=== PATIENT | male | born 1940 | race Caucasian/White ===

== ENCOUNTER 2016-10-25 15:34 | Observation (INO) | payer MEDICARE, OTHER ==
[~2016-10-25] VITALS: Ht 170.2 cm; Wt 97.7 kg
[~2016-10-25 15:34] MED LIST: 1-ME1LIQ PO; FOLI1TAB PO; METH2.5 PO; PRED2.5T4 PO
[2016-10-25 15:36] VITALS: BP 136/80; PULSE 104; RESP 20; TEMP 98.5; O2SAT 95
--- NOTE | 2016-10-25 15:52 | PD ---
Physical Exam Date Seen by Provider: Oct 25, 2016 Time Seen by Provider: 15:50 Narrative 76 year old white male presents to emergency department complaints of chest pain. He states that the pain has been present now for a week. He states that it was initially intermittent but now has become more persistent and steady. History of colorectal cancer. Currently on oral therapy. Patient denies any shortness of breath, wheezing, nausea, vomiting or diaphoresis. Patient of Dr. tay, Dr. Linda Almonte Vital signs reviewed. Awaiting bed placement. Data Data Last Documented VS Vital Signs Date Time Temp Pulse Resp B/P (MAP) Pulse Ox O2 Delivery O2 Flow Rate FiO2 10/25/16 15:36 98.5 104 20 136/80 (98) 95 Room Air Orders Orders Electrocardiogram (10/25/16 15:42) [facility] Medical Record Reviewed: No Supervised Visit with BROOKE: Teodoro Poe Oct 25, 2016 15:52
[2016-10-25] MEDS ORDERED: ASPIRIN 81 MG CHEW TAB PO ONE (16:15)
[2016-10-25] MEDS ORDERED: SODIUM CHLORIDE 0.9% FLUSH 10 ML FLUSH IVF PRN (16:15)
[2016-10-25 16:36] VITALS: BP 128/65; PULSE 75; RESP 17; O2SAT 97
--- NOTE | 2016-10-25 16:47 | RADRPT ---
EXAM DATE/TIME: 10/25/2016 16:26 [facility] COMPARISON: CHEST SINGLE AP, March 18, 2015, 18:28. INDICATIONS : Chest pain. MEDICAL HISTORY : Chronic obstructive pulmonary disease. Cardiovascular disease. SURGICAL HISTORY : CABG. ENCOUNTER: Initial ACUITY: 4 - 6 days PAIN SCORE: 1/10 LOCATION: Bilateral chest FINDINGS: Portable AP view of the chest demonstrates a normal-sized cardiac silhouette in this patient post med mina sternotomy. Clips overlie the mediastinum. No pleural effusion, airspace consolidation, or pneumo thorax is identified. CONCLUSION: No acute cardiopulmonary abnormality is identified. Lemuel Paz MD on October 25, 2016 at 16:45 Board Certified Radiologist. This report was verified electronically.
[2016-10-25 16:52] LABS: AUTOMATED NEUTROPHIL # 4.2 TH/MM3 (1.8-7.7); BASOPHIL % 0.2 % (0.0-2.0); EOSINOPHIL # 0.1 TH/MM3 (0-0.4); EOSINOPHIL % 2.7 % (0.0-4.0); HEMATOCRIT 39.3 % (39.0-51.0); HEMO FLAGS DIFF FINAL; LYMPH % 13.2 % (9.0-44.0); LYMPHOCYTE # 0.7 TH/MM3 (1.0-4.8); MEAN CELL VOLUME 91.9 FL (80.0-100.0); MEAN CORPUSCULAR HEMOGLOBIN 30.4 PG (27.0-34.0); MONO % 9.5 % (0.0-8.0); NEUT % 74.4 % (16.0-70.0); PLATELET COUNT 136 TH/MM3 (150-450); RED BLOOD COUNT 4.27 MIL/MM3 (4.50-5.90); RED CELL DISTRIBUTION WIDTH 17.3 % (11.6-17.2); WHITE BLOOD COUNT 5.6 TH/MM3 (4.0-11.0)
[2016-10-25 17:10] LABS: APTT (PATIENT) 24.5 SEC (24.3-30.1); INTERNATIONAL NORMALIZED RATIO 1.1 RATIO; PROTHROMBIN TIME - PATIENT 12.7 SEC (9.8-11.6)
[2016-10-25 17:11] LABS: ANION GAP 8 MEQ/L (5-15); BICARBONATE 24.5 MEQ/L (21.0-32.0); BLOOD UREA NITROGEN 23 MG/DL (7-18); CHLORIDE 108 MEQ/L (98-107); GLOMERULAR FILTRATION RATE 74 ML/MIN (>89); MAGNESIUM 1.7 MG/DL (1.5-2.5); POTASSIUM 3.7 MEQ/L (3.5-5.1); SODIUM (NA) 140 MEQ/L (136-145)
[2016-10-25 17:16] LABS: CREATINE KINASE 133 U/L (39-308)
[2016-10-25 17:28] LABS: CKMB 1.3 NG/ML (0.5-3.6)
[2016-10-25] MEDS ORDERED: ACETAMINOPHEN 500 MG CPLT PO PRN (18:00)
[2016-10-25] MEDS ORDERED: NITROGLYCERIN 0.4 MG SL 25 TABS/BTL SL PRN (18:00)
[2016-10-25] MEDS ORDERED: SODIUM CHLORIDE 0.9% FLUSH 10 ML FLUSH IV FLUSH PRN (18:00)
[2016-10-25] MEDS ORDERED: ONDANSETRON HCL 4 MG/2 ML VIAL IV PUSH PRN (18:00)
--- NOTE | 2016-10-25 18:23 | PD ---
HPI Chief Complaint: Chest Pain Time Seen by Provider: 16:00 Travel History International Travel<30 days: No Contact w/Intl Traveler<30days: No Traveled to known affect area: No History of Present Illness HPI 76-year-old male came to the emergency room with history of substernal chest pain that has been on and off for past 1 week. Patient has history of rectal cancer and gets radiation and chemotherapy. He was at his oncologist office today when he mentioned about the chest pain. His oncologist was concerned for angina and sent the patient to the emergency room. Currently patient is chest pain-free but says his last episode was 3 minutes ago. These are paroxysmal with no aggravating or relieving factors identified. They last for a few minutes and is like an intense pressure has been goes away. No radiation of the pain. Patient had a CABG 4 years ago. He had a nuclear stress test last year which showed stable lesions. Vital signs are within acceptable limits. Patient is a diabetic but has poor dietary control. [facility] Past Medical History Narrative Medical List of his past medical, surgical, social and family history is reviewed from the nursing note. Heart Rhythm Problems: No Cardiac Catheterization: No Cardiovascular Problems: Yes (QUAD BYPASS) High Cholesterol: Yes (CHOLESTEROL) Chemotherapy: Yes (rectal cancer) Congestive Heart Failure: No Diabetes: No Diminished Hearing: No Hypertension: Yes Tetanus Vaccination: Unknown ?: Not Past Surgical History Appendectomy: Yes Coronary Artery Bypass Graft: Yes (4 VESSEL CABG FEB 2012) Other Surgery: Yes (BILAT leg, face and thumb surgeries) Family History Family Myocardial Infarction: No Social History Alcohol Use: No Tobacco Use: No Substance Use: No Allergies-Medications (Allergen,Severity, Reaction): Coded Allergies: No Known Allergies (Verified , 03/18/15) Comments No known drug allergies. Reported Meds & Prescriptions Reported Meds & Active Scripts Active Reported 1-Methyl 2-Pyrrolidinone (1-Methyl 2-Pyrrolidone (Bulk)) 10 Mg Tab 1 Tab PO DAILY Folate (Folic Acid) 1 Mg Tab 1 Mg PO DAILY OMIT ON SATURDAYS Deltasone (Prednisone) 2.5 Mg Tab 2.5 Mg PO DAILY Narrative Medication List of his home medications reviewed from the nursing note. Review of Systems Except as stated in HPI: all other systems reviewed are Neg Physical Exam Narrative GENERAL: Awake, alert, mild distress SKIN: Focused skin assessment warm/dry. HEAD: Atraumatic. Normocephalic. EYES: Pupils equal and round. No scleral icterus. No injection or drainage. ENT: No nasal bleeding or discharge. Mucous membranes pink and moist. NECK: Trachea midline. No JVD. CARDIOVASCULAR: Regular rate and rhythm. No murmur appreciated. RESPIRATORY: No accessory muscle use. Clear to auscultation. Breath sounds equal bilaterally. GASTROINTESTINAL: Abdomen soft, non-tender, nondistended. Hepatic and splenic margins not palpable. MUSCULOSKELETAL: No obvious deformities. No clubbing. No cyanosis. No edema. NEUROLOGICAL: Awake and alert. No obvious cranial nerve deficits. Motor grossly within normal limits. Normal speech. PSYCHIATRIC: Appropriate mood and affect; insight and judgment normal. Data Data Last Documented VS Vital Signs Date Time Temp Pulse Resp B/P (MAP) Pulse Ox O2 Delivery O2 Flow Rate FiO2 10/25/16 16:36 97 Room Air 10/25/16 16:36 75 17 128/65 (86) 10/25/16 15:36 98.5 Orders Orders Electrocardiogram (10/25/16 16:13) Basic Metabolic Panel (Bmp) (10/25/16 16:13) Ckmb (Isoenzyme) Profile (10/25/16 16:13) Complete Blood Count With Diff (10/25/16 16:13) Magnesium (Mg) (10/25/16 16:13) Prothrombin Time / Inr (Pt) (10/25/16 16:13) Act Partial Throm Time (Ptt) (10/25/16 16:13) Troponin I (10/25/16 16:13) Chest, Single Ap (10/25/16 16:13) Ecg Monitoring (10/25/16 16:13) Bilateral Bp Monitoring (10/25/16 16:13) Iv Access Insert/Monitor (10/25/16 16:13) Oximetry (10/25/16 16:13) Oxygen Administration (10/25/16 16:13) Aspirin Chew (Aspirin Chew) (10/25/16 16:15) Sodium Chloride 0.9% Flush (Ns Flush) (10/25/16 16:15) CKMB (10/25/16 16:30) CKMB% (10/25/16 16:30) Admit Order (Ed Use Only) (10/25/16 17:49) Place In Observation (10/25/16 17:49) Activity Bed Rest With Brp (10/25/16 17:49) Vital Signs (Adult) Q4H (10/25/16 17:49) Cardiac Rhythm .As Directed (10/25/16 17:49) Notify Dr: Other .PRN (10/25/16 17:49) Notify Dr. Parameters (10/25/16 17:49) Resp Oxygen Nasal Cannula (10/25/16 ) Ckmb (Isoenzyme) Profile (10/25/16 17:49) Ckmb (Isoenzyme) Profile (10/25/16 20:49) Troponin I (10/25/16 17:49) Troponin I (10/25/16 20:49) Electrocardiogram (10/25/16:49) Electrocardiogram (10/25/16 20:49) ^ Obtain (10/25/16 17:49) Sodium Chloride 0.9% Flush (Ns Flush) (10/25/16 18:00) Sodium Chloride 0.9% Flush (Ns Flush) (10/25/16 21:00) Acetaminophen (Tylenol) (10/25/16 18:00) Ondansetron Inj (Zofran Inj) (10/25/16 18:00) Nitroglycerin Sl (Nitrostat Sl) (10/25/16 18:00) Laborer/Grade Check / Telemetry HERO.Q8H (10/25/16 17:49) Labs Laboratory Tests Test 10/25/16 16:30 White Blood Count 5.6 TH/MM3 Red Blood Count 4.27 MIL/MM3 Hemoglobin 13.0 GM/DL Hematocrit 39.3 % Mean Corpuscular Volume 91.9 FL Mean Corpuscular Hemoglobin 30.4 PG Mean Corpuscular Hemoglobin Concent 33.0 % Red Cell Distribution Width 17.3 % Platelet Count 136 TH/MM3 Mean Platelet Volume 6.9 FL Neutrophils (%) (Auto) 74.4 % Lymphocytes (%) (Auto) 13.2 % Monocytes (%) (Auto) 9.5 % Eosinophils (%) (Auto) 2.7 % Basophils (%) (Auto) 0.2 % Neutrophils # (Auto) 4.2 TH/MM3 Lymphocytes # (Auto) 0.7 TH/MM3 Monocytes # (Auto) 0.5 TH/MM3 Eosinophils # (Auto) 0.1 TH/MM3 Basophils # (Auto) 0.0 TH/MM3 CBC Comment DIFF FINAL Differential Comment Prothrombin Time 12.7 SEC Prothromb Time International Ratio 1.1 RATIO Activated Partial Thromboplast Time 24.5 SEC Blood Urea Nitrogen 23 MG/DL Creatinine 0.98 MG/DL Random Glucose 155 MG/DL Calcium Level 9.1 MG/DL Magnesium Level 1.7 MG/DL Sodium Level 140 MEQ/L Potassium Level 3.7 MEQ/L Chloride Level 108 MEQ/L Carbon Dioxide Level 24.5 MEQ/L Anion Gap 8 MEQ/L Estimat Glomerular Filtration Rate 74 ML/MIN Total Creatine Kinase 133 U/L Creatine Kinase MB 1.3 NG/ML Troponin I LESS THAN 0.02 NG/ML MDM Medical Decision Making Medical Screen Exam Complete: Yes Emergency Medical Condition: Yes Medical Record Reviewed: Yes Interpretation(s) Twelve-lead EKG was reviewed by me. Normal sinus rhythm, left axis deviation, right bundle branch block. These are unchanged from 03/18/2015. Heart rate of 79 bpm. Differential Diagnosis ACS, non-STEMI, nonspecific chest pain, Narrative Course 5:30 PM blood test results of back and within acceptable limit. Given his past risk factors and diabetes history I would prefer to keep him in the chest pain center. I spoke with the patient and his and they understand. Procedures EKG Prior to Arrival: No Diagnosis Primary Impression: Chest pain Qualified Codes: R07.9 - Chest pain, unspecified Admitting Information Admitting Physician Requests: Observation Scripts Lisinopril (Lisinopril) 10 Mg Tab 10 MG PO DAILY, #30 TAB 0 Refills Prov: Isael Arteaga 10/26/16 Lenore Polo MD Oct 25, 2016 18:23
[2016-10-25 19:40] VITALS: BP 132/77; PULSE 73; RESP 18; O2SAT 97
[2016-10-25 20:12] VITALS: BP 134/73; PULSE 68; RESP 18; TEMP 97.8; O2SAT 97
[2016-10-25 20:19] LABS: CREATINE KINASE 121 U/L (39-308)
[2016-10-25 20:31] LABS: CKMB 1.2 NG/ML (0.5-3.6)
[2016-10-25] MEDS: SODIUM CHLORIDE 0.9% FLUSH 10 ML FLUSH IV FLUSH SCH (21:00)
--- NOTE | 2016-10-25 23:29 | EKG ---
Date Performed: 10/25/2016 Time Performed: 19:31:39 PTAGE: 76 years EKG: Sinus rhythm WITH SINUS ARRHYTHMIA RIGHT BUNDLE BRANCH BLOCK LEFT ANTERIOR FASCICULAR BLOCK POSSIBLE ANTERIOR RADHA CARDIAL INFARCTION ABNORMAL ECG Compared to the PREVIOUS TRACING from 10/25/16, no significant change DOCTOR: Brad Barber Interpretating Date/Time 10/25/2016 23:28:00
[2016-10-25 23:31] LABS: CREATINE KINASE 120 U/L (39-308)
[2016-10-25 23:33] VITALS: BP 128/68; PULSE 71; RESP 18; TEMP 98; O2SAT 95
--- NOTE | 2016-10-25 23:35 | EKG ---
Date Performed: 10/25/2016 Time Performed: 15:47:10 PTAGE: 76 years EKG: Sinus rhythm WITH OCCASIONAL VENTRICULAR PREMATURE COMPLEXES RIGHT BUNDLE BRANCH BLOCK LEFT ANTERIOR FASCICULAR B LOCK LEFT VENTRICULAR HYPERTROPHY AND ST-T CHANGE POSSIBLE ANTERIOR MYOCARDIAL INFARCTION ABNORMAL EC G PREVIOUS TRACING : 03/18/2015 23.54 Compared to prior tracing no significant change DOCTOR: Brad Barber Interpretating Date/Time 10/25/2016 23:34:14
[2016-10-25 23:43] LABS: CKMB 1.3 NG/ML (0.5-3.6)
[2016-10-26 03:24] VITALS: BP 127/65; PULSE 70; RESP 18; TEMP 98.1; O2SAT 95
[2016-10-26 05:31] VITALS: PULSE 68
[2016-10-26 07:14] VITALS: BP 122/70; PULSE 69; RESP 16; TEMP 98.1; O2SAT 95
[2016-10-26 07:20] VITALS: PULSE 67
--- NOTE | 2016-10-26 10:04 | HHI.HP ---
[facility] Primary Care Physician Alonzo Johnson MD Chief Complaint Chest pain History of Present Illness This is a 76 rolled male with history of CAD status post four-vessel bypass in 2013 also history of rectal cancer undergoing radiation therapy and chemotherapy. Patient presents to ED with a complaint of one half weeks of essentially intermittent chest discomfort. He states the first 2 days it will last a couple seconds at a time but recurred multiple times. Then became more steady pressure and center his chest lasting 1-2 minutes at a time but resolved yesterday has not reoccurred since being in the hospital. He was seeing his oncologist when he discussed his discomforts and was told to go to the ED immediately for evaluation and that it was likely related to his chemotherapy agent and that they were discontinued at that time. He will continue daily radiation therapy. States this is not similar to the discomfort that led to his bypass. He was in the chest pain center in March of last year and had a nonischemic Lexiscan. He states he is not following a lehr tender. States at one point he was on statin therapy however was thought it was causing arthralgias and was discontinued. He was since diagnosed with rheumatoid arthritis but has not restarted statin therapy. Review of Systems General: Patient denies fevers, chills recent, and recent travel HEENT: Patient denies headache, sore throat, difficulty swallowing. Cardiovascular: Has the chest discomfort as mentioned above. Denies sensation of heart beating rapidly or irregularly. No syncope. Denies diaphoresis. Respiratory: Denies shortness of breath or inspirational chest discomfort. Denies coughing wheezing or hemoptysis. GI: Patient denies nausea, vomiting, diarrhea, abdominal pain, bloody stools. Musculoskeletal: Patient denies joint pain or edema. Denies calf pain or edema. Neurovascular: Patient denies numbness, tingling, weakness in extremities. Denies headache. Endocrine: Denies polyuria and polydipsia. Hematologic: Denies easy bruising. Skin: Denies rash or itching. Past Family Social History Allergies: Coded Allergies: No Known Allergies (Verified , 03/18/15) Past Medical History Four-vessel bypass 2013. Recent diagnosed rectal cancer and undergoing radiation therapy and chemotherapy however she believes chemotherapy is being stopped by his oncologist secondary to chest pain. Rheumatoid arthritis. Hypertension and he believes he might be taking amlodipine but not sure. Hyperlipidemia and diabetes. Past Surgical History Four-vessel bypass 2012. Appendectomy, facial surgery, and thumb surgery. Reported Medications Reported Meds & Active Scripts Active Reported 1-Methyl 2-Pyrrolidinone (1-Methyl 2-Pyrrolidone (Bulk)) 10 Mg Tab 1 Tab PO DAILY Folate (Folic Acid) 1 Mg Tab 1 Mg PO DAILY OMIT ON SATURDAYS Deltasone (Prednisone) 2.5 Mg Tab 2.5 Mg PO DAILY Active Ordered Medications Current Medications Medications (Trade) Dose Ordered Sig/Derrick Route Start Time Stop Time Status Last Admin (NS Flush) 2 ml UNSCH PRN IVF 10/25/16 16:15 (NS Flush) 2 ml UNSCH PRN IV FLUSH 10/25/16 18:00 (NS Flush) 2 ml BID IV FLUSH 10/25/16 21:00 10/25/16 21:00 (Tylenol) 500 mg Q4H PRN PO 10/25/16 18:00 (Zofran Inj) 4 mg Q6H PRN IV PUSH 10/25/16 18:00 (Nitrostat Sl) 0.4 mg Q5M PRN SL 10/25/16 18:00 Family History Denies family history of CAD. Social History Patient quit smoking cigarettes 20 years ago. Has maybe 1 beer a month. Denies illicit drugs. He is . Physical Exam Vital Signs Vital Signs Date Time Temp Pulse Resp B/P (MAP) Pulse Ox O2 Delivery O2 Flow Rate FiO2 10/26/16 07:20 67 10/26/16 07:14 98.1 69 16 122/70 (87) 95 10/26/16 05:31 68 10/26/16 03:24 98.1 70 18 127/65 (85) 95 10/25/16 23:33 98.0 71 18 128/68 (88) 95 10/25/16 20:12 97.8 68 18 134/73 (93) 97 10/25/16 19:55 10/25/16 19:40 73 18 132/77 (95) 97 Room Air 10/25/16 16:36 97 Room Air 10/25/16 16:36 75 17 128/65 (86) 97 Room Air 10/25/16 16:05 79 10/25/16 15:36 98.5 104 20 136/80 (98) 95 Room Air Physical Exam GENERAL: This is a well-nourished, well-developed patient, in no apparent distress. Patient speaks in clear complete sentences. Patient is pleasant. HEENT: Head is atraumatic and normocephalic. Neck is supple without lymphadenopathy and trachea is midline. No JVD or carotid bruits. CARDIOVASCULAR: Regular rate and rhythm without murmurs, gallops, or rubs. RESPIRATORY: Clear to auscultation. Breath sounds equal bilaterally. No wheezes , rales, or rhonchi. Chest wall is nontender. Well-healed scar over the sternum. No use of accessory muscles. GASTROINTESTINAL: Abdomen is nontender, nondistended. Abdomen soft. No obvious pulsatile mass or bruit. No CVA tenderness. Strong femoral pulses bilaterally. Normal bowel sounds in all quadrants. MUSCULOSKELETAL: Patient is moving upper and lower extremities freely. No calf tenderness or edema, no Homans sign. Strong pulses in upper and lower extremities. NEUROLOGICAL: Patient is alert and oriented. Cranial nerves 2-12 are grossly intact. No focal deficits and speech is clear. SKIN: No rash and turgor is normal. Laboratory Laboratory Tests Test 10/25/16 16:30 10/25/16 19:30 10/25/16 22:57 White Blood Count 5.6 Red Blood Count 4.27 Hemoglobin 13.0 Hematocrit 39.3 Mean Corpuscular Volume 91.9 Mean Corpuscular Hemoglobin 30.4 Mean Corpuscular Hemoglobin Concent 33.0 Red Cell Distribution Width 17.3 Platelet Count 136 Mean Platelet Volume 6.9 Neutrophils (%) (Auto) 74.4 Lymphocytes (%) (Auto) 13.2 Monocytes (%) (Auto) 9.5 Eosinophils (%) (Auto) 2.7 Basophils (%) (Auto) 0.2 Neutrophils # (Auto) 4.2 Lymphocytes # (Auto) 0.7 Monocytes # (Auto) 0.5 Eosinophils # (Auto) 0.1 Basophils # (Auto) 0.0 CBC Comment DIFF FINAL Differential Comment Prothrombin Time 12.7 Prothromb Time International Ratio 1.1 Activated Partial Thromboplast Time 24.5 Blood Urea Nitrogen 23 Creatinine 0.98 Random Glucose 155 Calcium Level 9.1 Magnesium Level 1.7 Sodium Level 140 Potassium Level 3.7 Chloride Level 108 Carbon Dioxide Level 24.5 Anion Gap 8 Estimat Glomerular Filtration Rate 74 Total Creatine Kinase 133 121 120 Creatine Kinase MB 1.3 1.2 1.3 Troponin I LESS THAN 0.02 LESS THAN 0.02 LESS THAN 0.02 Result Diagram: 10/25/16 1630 10/25/16 1630 Caprini VTE Risk Assessment Caprini VTE Risk Assessment: Mod/High Risk (score >= 2) Caprini Risk Assessment Model Point Value = 1 Point Value = 2 Point Value = 3 Point Value = 5 Age 41-60 Minor surgery BMI > 25 kg/m2 Swollen legs Varicose veins or History of unexplained or recurrent spontaneous Oral contraceptives or hormone replacement Sepsis (< 1 month) Serious lung disease, including pneumonia (< 1 month) Abnormal pulmonary function Acute myocardial infarction Congestive heart failure (< 1 month) History of inflammatory bowel disease Medical patient at bed rest Age 61-74 Arthroscopic surgery Major open surgery (> 45 min) Laparoscopic surgery (> 45 min) Malignancy Confined to bed (> 72 hours) Immobilizing plaster cast Central venous access Age >= 75 History of VTE Family history of VTE Factor V Leiden Prothrombin [id number] Lupus anticoagulant Anticardiolipin antibodies Elevated serum homocysteine Heparin-induced thrombocytopenia Other congenital or acquired thrombophilia Stroke (< 1 month) Elective arthroplasty Hip, pelvis, or leg fracture Acute spinal cord injury (< 1 month) Prophylaxis Regimen Total Risk Factor Score Risk Level Prophylaxis Regimen 0-1 Low Early ambulation 2 Moderate Order ONE of the following: *Sequential Compression Device (SCD) *Heparin 5000 units SQ BID 3-4 Higher Order ONE of the following medications: *Heparin 5000 units SQ TID *Enoxaparin/Lovenox 40 mg SQ daily (WT < 150 kg, CrCl > 30 mL/min) *Enoxaparin/Lovenox 30 mg SQ daily (WT < 150 kg, CrCl > 10-29 mL/min) *Enoxaparin/Lovenox 30 mg SQ BID (WT < 150 kg, CrCl > 30 mL/min) AND/OR *Sequential Compression Device (SCD) 5 or more Highest Order ONE of the following medications: *Heparin 5000 units SQ TID (Preferred with Epidurals) *Enoxaparin/Lovenox 40 mg SQ daily (WT < 150 kg, CrCl > 30 mL/min) *Enoxaparin/Lovenox 30 mg SQ daily (WT < 150 kg, CrCl > 10-29 mL/min) *Enoxaparin/Lovenox 30 mg SQ BID (WT < 150 kg, CrCl > 30 mL/min) AND *Sequential Compression Device (SCD) Assessment and Plan Assessment and Plan * Chest pain: Patient has had serial cardiac enzymes and EKGs for ruling out purposes. He'll be seen by Dr. Dejesus cardiology and the chest pain center and will undergo a Lexiscan. If nonischemic will be discharged home with instructions follow-up with PCP as well as to make arrangements to follow-up with local lehr tender. * CAD: We'll reassess with stress testing. * Hypertension: Continue medication. * Diabetes: Will be on sliding scale coverage. Resume medication discharge, he believes he takes metformin but does not know dose * Hyperlipidemia: He needs discuss statin therapy with his PCP. He might be able to tolerate it should be taken the medication if he can tolerate it. Patient is stable at this time. He is agreeable to this plan. Isael Arteaga Oct 26, 2016 10:04
[2016-10-26] MEDS ORDERED: REGADENOSON INJ 0.4 MG/5 ML SYR ONE (10:06)
--- NOTE | 2016-10-26 10:35 | EKG ---
Date Performed: 10/25/2016 Time Performed: 22:45:15 PTAGE: 76 years EKG: Sinus rhythm WITH SINUS ARRHYTHMIA POSSIBLE ATRIAL PACING (CLINICAL CORRELATION NEEDED) RIGHT BUNDLE BRANCH BLOCK LEFT ANTERIOR FASCICULAR BLOCK POSSIBLE ANTERIOR MYOCARDIAL INFARCTION ABNORMAL ECG PREVIOUS TRACING : 10/25/2016 19.31 DOCTOR: Eddie Dejesus Interpretating Date/Time 10/26/2016 10:33:35
[2016-10-26] MEDS: SODIUM CHLORIDE 0.9% FLUSH 10 ML FLUSH IV FLUSH SCH (11:38)
--- NOTE | 2016-10-26 11:59 | RADRPT ---
EXAM DATE/TIME: 10/26/2016 09:14 [facility] COMPARISON: No previous studies available for comparison. INDICATIONS : Chest pain. Angina. DOSE: 26.1 mCi Tc99m Myoview at stress. 8.1 mCi Tc99m Myoview at rest. 0.4 mg Lexiscan STRESS SYMPTOMS: None noted. EJECTION FRACTION: 39% MEDICAL HISTORY : Hypertension. Diabetes mellitus type 2. SURGICAL HISTORY : Appendectomy. CABG ENCOUNTER: Initial ACUITY: 1 week PAIN SCALE: 5/10 LOCATION: Bilateral chest TECHNIQUE: The patient underwent pharmacologic stress with infusion of prescribed dose. Continuous ECG tracing was monitored during stress. Gated SPECT imaging was performed after stress and conventional SPECT i maging was performed at rest. The examination was performed on a SPECT/CT scanner, both attenuation and non-corrected datasets were reviewed. FINDINGS: DISTRIBUTION: The maximum perfused segment at stress is in the anterior and septal wall. PERFUSION STUDY: There is a fixed perfusion defect at the inferolateral wall. No significant reversibility is identifi ed. GATED STUDY: Global hypokinesis with ejection fraction 39% CONCLUSION: 1. Fixed perfusion defect mostly in the inferior lateral wall and extending to the cardiac apex witho ut definite reversibility. Findings characteristic of prior infarct. 2. Diminished ejection fraction of 39% RISK CATEGORY: Low (<1% Annual Mortality Rate) Teodoro Garnett MD on October 26, 2016 at 11:54 Board Certified Radiologist. This report was verified electronically.
[2016-10-26] MEDS ORDERED: LISI10TA3 PO (12:08)
--- NOTE | 2016-10-26 12:09 | HHI.DCPOC ---
Discharge Care Plan Diagnosis: (1) Hyperlipidemia (2) Chest pain (3) CAD (coronary artery disease) (4) Hx of CABG (5) Hypertension (6) Cardiomyopathy Goals to Promote Your Health NEED TO FOLLOW UP WITH NETWORK TECHNICAL ANALYST. NEED TO DISCUSS TAKING CHOLESTEROL MEDICATIONS. * To prevent worsening of your condition and complications * To maintain your health at the optimal level Directions to Meet Your Goals Take your medications as prescribed Follow your dietary instruction Follow activity as directed Keep your appointments as scheduled Take your immunizations and boosters as scheduled If your symptoms worsen call your PCP, if no PCP go to Urgent Care Center or Emergency Room Smoking is Dangerous to Your Health. Avoid second hand smoke Call the 24-hour hour crisis hotline for domestic abuse at Isael Arteaga Oct 26, 2016 12:09
--- NOTE | 2016-10-30 12:11 | TR ---
Date Performed: 10/26/2016 Time Performed: 10:13:01 DOCTOR: Eddie Dejesus DRUG LIST: CLINICAL HISTORY: ANGINA REASON FOR TEST: Angina REASON FOR ENDING: OBSERVATION: CONCLUSION: Lexiscan stress test was performed under standard four minute protocol. Radionuclide was injected one minute prior to ending the test. No electrocardiographic abormalities were present to suggest ischemia. Nuclear imaging and interpretation are pending. COMMENTS:
== END 2016-10-26 12:37 | disposition home or self-care (01) ==
LOC: NEPC 15:34 → NEDA 17:51 → NEPFCDU 19:55
PROVIDERS: ADMIT Internal Medicine Cardiovascular Disease; ATTEND Internal Medicine Cardiovascular Disease
DX: R07.2 Precordial pain (principal); I25.10 Atherosclerotic heart disease of native coronary artery without angina pectoris; I42.9 Cardiomyopathy, unspecified; E78.00 Pure hypercholesterolemia, unspecified; I10 Essential (primary) hypertension; E11.9 Type 2 diabetes mellitus without complications; C20 Malignant neoplasm of rectum; R94.31 Abnormal electrocardiogram [ECG] [EKG]; M06.9 Rheumatoid arthritis, unspecified; Z95.1 Presence of aortocoronary bypass graft; Z87.891 Personal history of nicotine dependence
CPT/HCPCS: 71010; 78452; 80048; 82550; 82552; 83735; 84484; 85025; 85610; 85730; 93005; 93017; 99285; A9502; G0378; J2785

== ENCOUNTER 2017-01-03 13:00 | Inpatient (IN) | payer MEDICARE, OTHER ==
[~2017-01-03] VITALS: Ht 170.2 cm; Wt 95.1 kg
[~2017-01-03 13:00] MED LIST changes: -1-ME1LIQ PO; -FOLI1TAB PO; +LISI10TA3 PO; -METH2.5 PO; -PRED2.5T4 PO
[2017-02-07] MEDS ORDERED: PRED5TAB PO (08:40)
[2017-02-07] MEDS ORDERED: PRAV20TA2 PO (08:40)
[2017-02-07] MEDS ORDERED: FOLI800T PO (08:40)
[2017-02-07] MEDS ORDERED: METH2.5T PO (08:40)
[2017-02-07] MEDS ORDERED: METF500T PO (08:40)
[2017-02-07] MEDS ORDERED: AMLO10TA2 PO (08:40)
[2017-02-14] VITALS (8 sets, daily range): BP systolic 97–114; BP diastolic 56–63; PULSE 82–97; RESP 17–19; TEMP 97.8–98.6; O2SAT 93–94
--- NOTE | 2017-02-14 11:07 | PD.HP.UP ---
H&P Update Note The Pre-Admit History and Physical Examination regarding the above named patient was reviewed (including, but not limited to, vital signs, heart, lungs, co-morbid conditions), and upon re-examination it is noted that: the patient's condition has not significantly changed since the last examination. Eduar Almonte MD Feb 14, 2017 11:07
[2017-02-14] MEDS ORDERED: TAMS0.4C4 PO ×2 (11:33)
[2017-02-14] MEDS ORDERED: SODIUM CHLORID 0.9% 500 ML IV PRN (11:45)
[2017-02-14] MEDS ORDERED: POVIDONE IODINE 5% (ANTISEPSIS KIT) 4 APPLICATIONS EACH NARE PRN (11:45)
[2017-02-14] MEDS ORDERED: LACTATED RINGER'S 1000 ML IV PRN (11:45)
[2017-02-14] MEDS ORDERED: METOPROLOL TARTRATE 25 MG TAB PO PRN (11:45)
[2017-02-14] MEDS ORDERED: CHLORHEXIDINE GLUCONATE 2 % 1 PACK (2 CLOTHS) TOPICAL PRN (11:45)
[2017-02-14] MEDS ORDERED: ALVIMOPAN 12 MG CAPSULE - On Call PO SCH (11:45)
[2017-02-14] MEDS ORDERED: LOSA25TA PO (11:57)
[2017-02-14] MEDS ORDERED: METOPROLOL TARTRATE 5 MG/5 ML VIAL IV PUSH ONE (12:00)
[2017-02-14] MEDS ORDERED: DEXT 5%-NACL 0.9% 1000 ML INJ 1,000 ML IV SCH (12:00)
[2017-02-14] MEDS ORDERED: ONDANSETRON HCL 4 MG/2 ML VIAL IV ONE (12:00)
[2017-02-14] MEDS ORDERED: ceFAZolin 1,000 MG/NS 100 ML IV SCH ×2 (12:00)
[2017-02-14] MEDS ORDERED: ROCURONIUM INJ 50 MG/5 ML SYRINGE IV PUSH ONE (12:00)
[2017-02-14] MEDS ORDERED: PHENYLEPH/NS 1000 MCG/10 ML SYR IV ONE (12:00)
[2017-02-14] MEDS ORDERED: PROPOFOL 200 MG/20 ML AMP IV ONE (12:00)
[2017-02-14] MEDS ORDERED: LIDOCAINE HCL 1% PF 5 ML SYRINGE OTHER ONE (12:00)
[2017-02-14] MEDS ORDERED: METRONIDAZOLE 500 MG/100 ML ISONTONIC SOLN IV SCH (12:00)
[2017-02-14] MEDS ORDERED: ePHEDrine/NS 25 MG/5 ML SYRINGE IV ONE (12:00)
[2017-02-14] MEDS ORDERED: BUPIVACAINE HCL PF 0.5% 30 ML VIAL ONE ×7 (13:01→16:27)
[2017-02-14] MEDS ORDERED: GLUCAGON 1 MG/ML VIAL ONE (13:01)
[2017-02-14] MEDS ORDERED: methylPREDNISolone SOD SUCC 125 MG/2 ML VIAL ONE (13:27)
[2017-02-14] MEDS ORDERED: ACETAMINOPHEN 325 MG TAB PO PRN (17:00)
[2017-02-14] MEDS ORDERED: ONDANSETRON HCL 4 MG/2 ML VIAL IV PUSH PRN (17:00)
[2017-02-14] MEDS: INSULIN NovoLIN REGULAR SUPPLEMENTAL SCALE SQ SCH ×2 (17:00→21:00)
[2017-02-14] MEDS ORDERED: Post-op Orders (for Pharmacy) XX ONE (17:00)
[2017-02-14] MEDS ORDERED: KETOROLAC TROMETHAMINE 30 MG/ML (IVP) VIAL IVP PRN (17:00)
[2017-02-14] MEDS ORDERED: BENZOCAINE 6 MG/MENTHOL 10 MG LOZENGE BUCCAL PRN (17:00)
[2017-02-14] MEDS ORDERED: ENALAPRILAT 2.5 MG/2 ML VIAL IV PUSH PRN (17:00)
[2017-02-14] MEDS ORDERED: ACETAMINOPHEN/HYDROcodone 325 MG/5 MG TAB PO PRN (17:00)
[2017-02-14] MEDS ORDERED: POTASSIUM CHLOR 20 MEQ PREMIX 100 ML IV PRN (17:00)
[2017-02-14] MEDS ORDERED: DEXTROSE 50% IN WATER 50 ML VIAL(D50) IV PUSH PRN (17:00)
[2017-02-14] MEDS ORDERED: BUPIVACAINE HCL PF 0.5% 30 ML VIAL NB SCH (17:00)
[2017-02-14] MEDS ORDERED: ENALAPRILAT 1.25 MG/ML VIAL IV PUSH PRN (17:00)
[2017-02-14] MEDS ORDERED: POTASSIUM CHLOR 40 MEQ PREMIX 100 ML IV PRN (17:00)
[2017-02-14] MEDS ORDERED: NALOXONE HCL 0.4 MG/ML AMP IV PUSH PRN (17:00)
[2017-02-14] MEDS ORDERED: GLUCAGON 1 MG/ML VIAL OTHER PRN (17:00)
[2017-02-14] MEDS ORDERED: MIDAZOLAM HCL 2 MG/2 ML VIAL ONE (17:12)
[2017-02-14] MEDS ORDERED: ACETAMINOPHEN 1000 MG/100 ML 100 ML IV ONE (17:12)
[2017-02-14] MEDS ORDERED: *morphine SULFATE 4 MG/ML PERIprocedure ONLY ONE (17:16)
[2017-02-14] MEDS ORDERED: DO NOT ADM ANY ANTICOAGULANT DRUGS PRN (17:30)
[2017-02-14] MEDS: D5-NS + KCL 20 MEQ INJ 1,000 ML IV SCH (17:42)
[2017-02-14] MEDS: MORPHINE SULFATE 30 MG/30 ML PCA IV SCH (17:49)
[2017-02-14] MEDS: PCA - TOTAL MG MORPHINE DELIVERED PER SHIFT SCH ×2 (18:30→22:00)
[2017-02-14] MEDS: TAMSULOSIN HCL 0.4 MG CAP PO SCH (21:52)
[2017-02-14] MEDS: METOCLOPRAMIDE HCL 10 MG/2 ML VIAL IVS SCH (21:53)
[2017-02-14] MEDS: metroNIDAZOLE 500 MG INJ 100 ML IV SCH (21:54)
[2017-02-15] VITALS (20 sets, daily range): BP systolic 100–135; BP diastolic 58–78; PULSE 80–102; RESP 14–19; TEMP 97.5–98.7; O2SAT 92–95
[2017-02-15] MEDS: D5-NS + KCL 20 MEQ INJ 1,000 ML IV SCH ×4 (01:23→21:48)
[2017-02-15 04:38] LABS: AUTOMATED NEUTROPHIL # 13.3 TH/MM3 (1.8-7.7); HEMATOCRIT 37.4 % (39.0-51.0); HEMOGLOBIN 12.4 GM/DL (13.0-17.0); LYMPH % 3.2 % (9.0-44.0); LYMPHOCYTE # 0.5 TH/MM3 (1.0-4.8); MEAN CELL VOLUME 94.4 FL (80.0-100.0); MEAN CORPUSCULAR HEMOGLOBIN 31.3 PG (27.0-34.0); MEAN CORPUSCULAR HGB CONC 33.2 % (32.0-36.0); MEAN PLATELET VOLUME 7.1 FL (7.0-11.0); MONO % 5.2 % (0.0-8.0); MONOCYTE # 0.8 TH/MM3 (0-0.9); NEUT % 91.6 % (16.0-70.0); PLATELET COUNT 198 TH/MM3 (150-450); RED BLOOD COUNT 3.96 MIL/MM3 (4.50-5.90); RED CELL DISTRIBUTION WIDTH 15.3 % (11.6-17.2); WHITE BLOOD COUNT 14.6 TH/MM3 (4.0-11.0)
[2017-02-15 05:09] LABS: BICARBONATE 24.3 MEQ/L (21.0-32.0); CALCIUM 7.8 MG/DL (8.5-10.1); CREATININE 1.02 MG/DL (0.60-1.30)
[2017-02-15] MEDS: metroNIDAZOLE 500 MG INJ 100 ML IV SCH ×2 (05:33→14:00)
[2017-02-15] MEDS: PCA - TOTAL MG MORPHINE DELIVERED PER SHIFT SCH ×3 (05:33→22:00)
[2017-02-15] MEDS: INSULIN NovoLIN REGULAR SUPPLEMENTAL SCALE SQ SCH ×4 (08:00→20:55)
[2017-02-15] MEDS: PANTOPRAZOLE SOD 40 MG DELAYED RELEASE TAB PO SCH (09:00)
--- NOTE | 2017-02-15 09:15 | HHI.PR ---
Subjective Remarks C/R Surg POD #1 afebrile, VSS UO good drain mod Objective - Vital Signs Date Time Temp Pulse Resp B/P (MAP) Pulse Ox O2 Delivery O2 Flow Rate FiO2 02/15/17 08:00 92 02/15/17 07:45 98.7 16 108/60 (76) 93 02/14/17 18:10 Nasal Cannula 3 Result Diagram: 02/15/1742602/15/17426 Objective Remarks PE alert Abd - soft, wound dry, stoma pink A/P Assessment and Plan Imp: stable post-op OOB tx to floor decr IVF Eduar Almonte MD Feb 15, 2017 09:15
[2017-02-15] MEDS: PANTOPRAZOLE SODIUM 40 MG VIAL IVP SCH (10:01)
[2017-02-15] MEDS: predniSONE 5 MG TAB PO SCH (10:02)
[2017-02-15] MEDS: LOSARTAN 25 MG TAB PO SCH (10:02)
[2017-02-15] MEDS: METOCLOPRAMIDE HCL 10 MG/2 ML VIAL IVS SCH ×2 (10:02→21:43)
[2017-02-15] MEDS: ALVIMOPAN 12 MG CAPSULE - Post-op dosing PO SCH ×2 (10:03→21:40)
[2017-02-15] MEDS: HEPARIN SODIUM - SQ 10,000 UNITS/ML VIAL SQ SCH (18:42)
[2017-02-15] MEDS: MORPHINE SULFATE 30 MG/30 ML PCA IV SCH (18:45)
--- NOTE | 2017-02-15 19:11 | PD.WCN.NOT ---
Wound Consult Description: Consult for NEW OSTOMY TEACHING per Dr Almonte Communicated with: Patient RN Recommendation: Read information booklet left at bedside for reinforcement and in preparation for tomorrows teaching session with @10 am Additional Information: Patient seen on [place] for ostomy teaching and ostomy assessment. Ostomy Type: Ileostomy Surgeon: Eduar Almonte MD Date of Surgery: Feb 14, 2017 Complete: Education materials ([facility] at bedside after going over contents), Other (3 supplies ordered ) Educated patient on: Opening and closing bottom of pouch Letting air out by opening the top of the pouch Attaching the barrier to the pouch Food Activities Appliances Anatomy Stoma appearance Stoma function Output How often to empty pouch How often to change the entire appliance Additional information Patient seen on for ostomy assessment and teaching. Stoma is located on the right mid side abdomen measuring 1 1/4" red, round, moist, moderately protruding, edematous, lumen noted in center of stoma functioning with soft liquid green effluent in pouch that was not emptied by song writer. Will follow up with patient and tomorrow 02/16/17 for further teaching @1000 with ostomy appliance change. Liseth Odell Feb 15, 2017 19:11
[2017-02-15] MEDS ORDERED: ALVIMOPAN 12 MG CAPSULE PO SCH (21:00)
[2017-02-15] MEDS: TAMSULOSIN HCL 0.4 MG CAP PO SCH (21:40)
[2017-02-16] VITALS: BP 139/74; PULSE 79; RESP 18; TEMP 98.7; O2SAT 92
[2017-02-16 04:00] VITALS: BP 140/72; PULSE 69; RESP 17; TEMP 98.9; O2SAT 94
[2017-02-16] MEDS: HEPARIN SODIUM - SQ 10,000 UNITS/ML VIAL SQ SCH ×2 (04:41→17:40)
[2017-02-16 05:32] LABS: AUTOMATED NEUTROPHIL # 8.3 TH/MM3 (1.8-7.7); BASOPHIL % 0.2 % (0.0-2.0); EOSINOPHIL % 0.4 % (0.0-4.0); HEMOGLOBIN 11.3 GM/DL (13.0-17.0); LYMPH % 2.8 % (9.0-44.0); LYMPHOCYTE # 0.3 TH/MM3 (1.0-4.8); MEAN CELL VOLUME 95.3 FL (80.0-100.0); MEAN CORPUSCULAR HEMOGLOBIN 30.8 PG (27.0-34.0); MEAN CORPUSCULAR HGB CONC 32.3 % (32.0-36.0); MEAN PLATELET VOLUME 7.2 FL (7.0-11.0); MONO % 5.1 % (0.0-8.0); MONOCYTE # 0.5 TH/MM3 (0-0.9); NEUT % 91.5 % (16.0-70.0); PLATELET COUNT 159 TH/MM3 (150-450); RED BLOOD COUNT 3.67 MIL/MM3 (4.50-5.90); RED CELL DISTRIBUTION WIDTH 15.3 % (11.6-17.2); WHITE BLOOD COUNT 9.1 TH/MM3 (4.0-11.0)
[2017-02-16] MEDS: PCA - TOTAL MG MORPHINE DELIVERED PER SHIFT SCH ×3 (05:43→22:00)
[2017-02-16 06:14] LABS: BICARBONATE 27.2 MEQ/L (21.0-32.0); CALCIUM 7.6 MG/DL (8.5-10.1); CREATININE 0.91 MG/DL (0.60-1.30)
[2017-02-16] MEDS: PANTOPRAZOLE SOD 40 MG DELAYED RELEASE TAB PO SCH (07:15)
[2017-02-16 08:00] VITALS: BP 142/68; PULSE 107; RESP 18; TEMP 97.8; O2SAT 90
--- NOTE | 2017-02-16 08:53 | HHI.FF ---
Face to Face Verification Diagnosis: (1) Rectal cancer Physical Therapy Order: Evaluate and Treat, Improve ambulation, Strength and gait training Home Health Nursing Order: Medical education Signs/symptoms of disease process Wound care and dressing changes Instructions: stoma care I have seen patient Lemuel Diallo on 02/16/17. My clinical findings support the need for the requested home health care services because: Ltd mobility - disease progression Deconditioned w/ increased weakness Need for psychosocial assistance Infection w/ risk of complications I certify that my clinical findings support that this patient is homebound because: Post-op weakness Unsteady gait/balance Eduar Almonte MD Feb 16, 2017 08:53
[2017-02-16] MEDS: D5-NS + KCL 20 MEQ INJ 1,000 ML IV SCH ×2 (10:00→20:56)
[2017-02-16] MEDS: PANTOPRAZOLE SODIUM 40 MG VIAL IVP SCH (10:02)
[2017-02-16] MEDS: ALVIMOPAN 12 MG CAPSULE - Post-op dosing PO SCH ×2 (10:19→20:38)
[2017-02-16] MEDS: LOSARTAN 25 MG TAB PO SCH (10:19)
[2017-02-16] MEDS: METOCLOPRAMIDE HCL 10 MG/2 ML VIAL IVS SCH ×2 (10:19→20:56)
[2017-02-16] MEDS: INSULIN NovoLIN REGULAR SUPPLEMENTAL SCALE SQ SCH ×4 (10:20→21:00)
[2017-02-16] MEDS: predniSONE 5 MG TAB PO SCH (10:20)
--- NOTE | 2017-02-16 11:13 | PD.WCN.NOT ---
Wound Consult Description: Consult for NEW OSTOMY TEACHING per Dr Almonte Communicated with: Patient MYRON Aguilera Recommendation: Empty pouch when 1/3-1/2 full of effluent Change appliance every 3-5 days and PRN before leaks occur Additional Information: Patient seen on [address] [place] [address] for ostomy assessment and teaching with appliance change. Ostomy Type: Ileostomy Surgeon: Eduar Almonte MD Date of Surgery: Feb 14, 2017 Complete: Starter kit (Sent today 02/16/17 via 2 day air), Education materials ([employer] educational materials left at bedside after going over contents), Rx ( Left on chart), Other (3 supplies ordered ) Educated patient on: Ostomy appliance removal with adhesive remover wipes Cleansing peristomal skin with water only and patting dry Measuring stoma for correct appliance fit Molding appliance to fit stoma size Closing pouch at bottom to avoid leaks Attaching pouch to barrier at flange and ensuring proper closure to avoid leaks Warming appliance to activate polymers for better adhesion Showering Bathing Obtaining appliances through [employer] support group through [employer] Free starter kit from [employer] obtained from [facility] for patient to go home with at discharge Emptying pouch when 1/3-1/2 full, before bedtime, and first thing in the morning Stoma appearance and function When to seek medical attention for discoloration of stoma or lack of output >12 hours Additional information Patient seen on [address] [place] [address] for ostomy assessment, teaching, and appliance change. Supplies ordered in size 2 1/4" for appliance change today. Patient remained in bed for ostomy appliance change and states that he can see everything without the use of a provided mirror. Wafer was removed by patient from right side abdomen using adhesive remover wipes. Stoma was visualized as red, round, moist , moderately protruding, edematous, lumen noted at 6 o'clock and functioning with soft green effluent noted in pouch that was shown to MYRON Aguilera at bedside for I&O's. Mucocutaneous junction is noted with circumferential sutures otherwise unremarkable. Peristomal skin is unremarkable as well. Stoma was measuring 1" therefore a wafer size 2 1/4" was used in appliance change today. Peristomal skin was skin prepped by commercial lines underwriter using [employer] skin barrier film and allowed to dry before placing new barrier (wafer). Pouch was placed by patient. The end of the pouch was closed by patient and checked by commercial lines underwriter and noted to be mostly open so that patient would close it more securely and he did. All questions were answered at this time and patient will be followed up on Sunday02/19/17 if still inpatient. Script was left on chart for possible DC over the weekend and patient has 5 appliances to go home with that are currently in patient room. [facility] starter kit was sent out today via 2 day air and should arrive Sunday02/19/17 to patient home address. Liseth Odell [facility] Feb 16, 2017 11:13
[2017-02-16 12:00] VITALS: BP 133/63; PULSE 99; RESP 18; TEMP 97.3; O2SAT 90
[2017-02-16 16:00] VITALS: BP 132/75; PULSE 97; RESP 18; TEMP 98.8; O2SAT 91
--- NOTE | 2017-02-16 17:07 | MP ---
cc: CHANEL LEOS MD DATE OF SURGERY 02/14/17 PREOPERATIVE DIAGNOSIS Rectal cancer status post radiation chemotherapy. PROCEDURE Exploratory laparotomy with proctosigmoidectomy and low pelvic anastomosis, diverting ileostomy. POSTOPERATIVE DIAGNOSIS Residual rectal cancer. SURGEON Dr. Yordy Leos DENTAL BILLING SPECIALIST Dr. Riri Erazo PROCEDURE IN DETAIL The patient was placed in the supine position. After adequate general anesthesia, his legs were placed in Buckley stirrups and supported appropriately. The abdomen and perineum were then prepped with Betadine solution and draped in the usual sterile fashion. With Dr. Erazo's assistance, the abdomen was opened through an infraumbilical transverse incision dividing the rectus muscles with electrocautery. Exploration revealed a fairly significant amount of fat within the abdomen. There was a large left renal cyst elevating the left colon anteriorly. There appeared to be thickening in the radiation change distal cul-de-sac consistent with the previously treated rectal cancer. The proximal colon was palpated and felt to be pretty unremarkable. Small bowel was run from ligament of Treitz down to ileocecal valve felt to be normal. The liver was palpably normal. The gallbladder was unremarkable. The stomach and duodenum were normal. Great vessels were of normal caliber and fairly soft to palpation. First, the sigmoid colon was mobilized medially by dividing along the white line of Toldt. The left ureter was identified and carefully preserved. Dissection then proceeded up the left gutter taking the left colon off the retroperitoneum mobilizing the bowel toward the splenic flexure. The right retroperitoneal space was then opened and the bowel dissected off the presacral fascia, trying to preserve the presacral nerves. The pedicle for the superior hemorrhoidal vessels identified and divided between Cleo's obtaining hemostasis with Vicryl ties. Dissection then proceeded down into the pelvis mobilizing the bowel off the presacral fascia toward the pelvic floor. Anteriorly, the cul-de-sac was opened and a plane developed between the anterior rectal wall and the prostatic capsule. At this point, Dr. Erazo went to the perineal part of the patient, inserted the colonoscope and identified the ulcer bed and an adequate margin below the bed was marked intra-abdominally. At the appropriate point, the mesorectum was taken with electrocautery and Vicryl ties for hemostasis. The bowel was finally divided deep in the pelvis just above the pelvic floor using the contour stapling device. The bowel was then sized to reach the rectal pouch without tension and with good blood supply preserving the left colic vessels. At the appropriate point, the marginal artery was taken and the bowel divided between a pursestring suture device and a Johnathon clamp. The end of the bowel was sized to accept a 33-mm EEA anvil and this was secured with a pursestring suture. Dr. Erazo inserted the stapling instrument transanally under direct vision and it was brought up to the end of the rectal pouch. The trocar advanced. The stapler was then reassembled. The bowel aligned properly and the staple closed and fired. Upon withdrawal, two complete doughnuts of tissue were seen. Gentle insufflation did confirm an airtight anastomosis. The abdomen was then irrigated copiously with normal saline. Adequate hemostasis achieved at all sites. Ran-Peralta drain placed down into the pelvis and brought up through a stab wound in the right lower quadrant and secured to the skin with a nylon suture. A segment of a distal ileum was chosen for the diverting ileostomy and an avascular plane created in the mesentery. A circular stab wound was created in the right upper quadrant and the loop of the ileum brought up through the stab wound without tension and with good blood supply. Transverse incision was then closed anatomically in two layers using #1 PDS sutures to reapproximate the respective fascial layers. On-Q catheters were placed into the rectus sheath on both sides and brought up through subcutaneous tunnels below the transverse incision. The subcu tissue was irrigated copiously and the skin closed with a running subcuticular Vicryl suture. Wound area washed with normal saline and dried, sterile dressing of Telfa and gauze applied. Finally, the ileostomy was matured by stapling the distal end with a TA 60 stapler and maturing the proximal end by creating an enterotomy and maturing the proximal bowel in the usual Leana fashion with a row of interrupted chromic catgut sutures around the circumference. At completion, the stoma did appear to be viable and was patent through the fascial level. Sterile ileostomy appliance fitted over the new stoma. The patient tolerated the procedure quite well and was brought to recovery room in stable condition. Sponge and needle counts were correct at the end of the procedure. MD ROX Rebollar/ /8:42 PM /4:53 PM
[2017-02-16] MEDS: MORPHINE SULFATE 30 MG/30 ML PCA IV SCH (17:38)
[2017-02-16 20:00] VITALS: BP 132/62; PULSE 87; RESP 20; TEMP 98.6; O2SAT 93
[2017-02-16] MEDS: TAMSULOSIN HCL 0.4 MG CAP PO SCH (20:38)
--- NOTE | 2017-02-16 22:28 | HHI.PR ---
Subjective Remarks C/R Surg POD #2 afebrile, VSS UO good drain less Objective - Vital Signs Date Time Temp Pulse Resp B/P (MAP) Pulse Ox O2 Delivery O2 Flow Rate FiO2 02/16/17 20:00 98.6 87 20 132/62 (85) 93 02/15/17 12:00 Nasal Cannula 2.00 Result Diagram: 02/16/1744502/16/17445 Objective Remarks PE alert Abd - soft, wound dry, stoma pink - little output A/P Assessment and Plan Imp: OOB decr IVF start PO Path - node negative Eduar Almonte MD Feb 16, 2017 22:27
[2017-02-17] VITALS: BP 123/63; PULSE 93; RESP 20; TEMP 98.7; O2SAT 91
[2017-02-17] MEDS: HEPARIN SODIUM - SQ 10,000 UNITS/ML VIAL SQ SCH ×2 (04:05→16:42)
[2017-02-17] MEDS: PCA - TOTAL MG MORPHINE DELIVERED PER SHIFT SCH ×3 (06:00→20:26)
[2017-02-17 06:14] VITALS: BP 119/74; PULSE 96; RESP 20; TEMP 98.4; O2SAT 90
[2017-02-17] MEDS: D5-NS + KCL 20 MEQ INJ 1,000 ML IV SCH ×2 (07:10→19:17)
[2017-02-17 08:00] VITALS: BP 131/69; PULSE 87; RESP 18; TEMP 97; O2SAT 93
[2017-02-17] MEDS: LOSARTAN 25 MG TAB PO SCH (08:03)
[2017-02-17] MEDS: predniSONE 5 MG TAB PO SCH (08:03)
[2017-02-17] MEDS: PANTOPRAZOLE SODIUM 40 MG VIAL IVP SCH (08:03)
[2017-02-17] MEDS: ALVIMOPAN 12 MG CAPSULE - Post-op dosing PO SCH ×2 (08:03→20:26)
[2017-02-17] MEDS: METOCLOPRAMIDE HCL 10 MG/2 ML VIAL IVS SCH ×4 (08:03→23:48)
[2017-02-17] MEDS: PANTOPRAZOLE SOD 40 MG DELAYED RELEASE TAB PO SCH (08:03)
[2017-02-17] MEDS: INSULIN NovoLIN REGULAR SUPPLEMENTAL SCALE SQ SCH ×4 (08:04→20:25)
--- NOTE | 2017-02-17 09:23 | HHI.PR ---
Subjective Remarks C/R Surg POD #3 afebrile, VSS UO good drain less little stoma output Objective - Vital Signs Date Time Temp Pulse Resp B/P (MAP) Pulse Ox O2 Delivery O2 Flow Rate FiO2 02/17/17 08:00 97.0 87 18 131/69 (89) 93 02/15/17 12:00 Nasal Cannula 2.00 Result Diagram: 02/16/1744502/16/17 0446 Objective Remarks PE alert Abd - soft, wound dry,+tympany, stoma bag empty A/P Assessment and Plan Imp: OOB decr IVF hold PO Eduar Almonte MD Feb 17, 2017 09:23
[2017-02-17 12:00] VITALS: BP 119/57; PULSE 83; RESP 18; TEMP 97; O2SAT 90
[2017-02-17 16:00] VITALS: BP 133/64; PULSE 88; RESP 17; TEMP 97.4; O2SAT 93
[2017-02-17 20:00] VITALS: BP 122/60; PULSE 82; RESP 16; TEMP 97.3; O2SAT 92
[2017-02-17] MEDS: TAMSULOSIN HCL 0.4 MG CAP PO SCH (20:26)
[2017-02-18] VITALS: BP 111/63; PULSE 83; RESP 16; TEMP 96.9; O2SAT 96
[2017-02-18] MEDS: METOCLOPRAMIDE HCL 10 MG/2 ML VIAL IVS SCH ×4 (04:53→23:27)
[2017-02-18] MEDS: PCA - TOTAL MG MORPHINE DELIVERED PER SHIFT SCH ×3 (04:54→19:35)
[2017-02-18] MEDS: HEPARIN SODIUM - SQ 10,000 UNITS/ML VIAL SQ SCH ×2 (04:54→17:24)
[2017-02-18] MEDS: MORPHINE SULFATE 30 MG/30 ML PCA IV SCH (07:23)
[2017-02-18] MEDS: INSULIN NovoLIN REGULAR SUPPLEMENTAL SCALE SQ SCH ×4 (07:32→19:34)
[2017-02-18 08:00] VITALS: BP 137/75; PULSE 81; RESP 18; TEMP 97; O2SAT 92
[2017-02-18] MEDS: ALVIMOPAN 12 MG CAPSULE - Post-op dosing PO SCH ×2 (08:23→19:34)
[2017-02-18] MEDS: PANTOPRAZOLE SOD 40 MG DELAYED RELEASE TAB PO SCH (08:23)
[2017-02-18] MEDS: PANTOPRAZOLE SODIUM 40 MG VIAL IVP SCH (08:23)
[2017-02-18] MEDS: LOSARTAN 25 MG TAB PO SCH (08:24)
[2017-02-18] MEDS: predniSONE 5 MG TAB PO SCH (08:24)
--- NOTE | 2017-02-18 09:10 | HHI.PR ---
Subjective Remarks C/R Surg POD #4 afebrile, VSS UO good drain less little stoma output Objective - Vital Signs Date Time Temp Pulse Resp B/P (MAP) Pulse Ox O2 Delivery O2 Flow Rate FiO2 02/18/17 08:22 16 02/18/17 08:00 97.0 81 137/75 (95) 92 02/15/17 12:00 Nasal Cannula 2.00 Result Diagram: 02/16/1744502/16/17 0446 Objective Remarks PE alert Abd - soft, wound dry,+tympany - less, stoma bag empty A/P Assessment and Plan Imp: OOB decr IVF hold PO, adv slowly dc Eduar Fermin MD Feb 18, 2017 09:10
[2017-02-18 12:00] VITALS: BP 134/58; PULSE 82; RESP 17; TEMP 96.6; O2SAT 90
[2017-02-18 16:00] VITALS: BP 111/55; PULSE 82; RESP 17; TEMP 97.2; O2SAT 94
[2017-02-18] MEDS: TAMSULOSIN HCL 0.4 MG CAP PO SCH (19:34)
[2017-02-18] MEDS: D5-NS + KCL 20 MEQ INJ 1,000 ML IV SCH (19:35)
[2017-02-18 20:00] VITALS: BP 130/82; PULSE 82; RESP 18; TEMP 97.8; O2SAT 92
[2017-02-19 00:37] VITALS: BP 120/71; PULSE 79; RESP 18; TEMP 97.3; O2SAT 92
[2017-02-19] MEDS: METOCLOPRAMIDE HCL 10 MG/2 ML VIAL IVS SCH ×3 (05:31→18:37)
[2017-02-19] MEDS: PCA - TOTAL MG MORPHINE DELIVERED PER SHIFT SCH ×2 (05:32→14:45)
[2017-02-19] MEDS: HEPARIN SODIUM - SQ 10,000 UNITS/ML VIAL SQ SCH ×2 (05:32→18:36)
[2017-02-19 08:00] VITALS: BP 124/64; PULSE 82; RESP 16; TEMP 97.8; O2SAT 95
[2017-02-19] MEDS: PANTOPRAZOLE SOD 40 MG DELAYED RELEASE TAB PO SCH (09:00)
[2017-02-19] MEDS: LOSARTAN 25 MG TAB PO SCH (09:12)
[2017-02-19] MEDS: PANTOPRAZOLE SODIUM 40 MG VIAL IVP SCH (09:12)
[2017-02-19] MEDS: predniSONE 5 MG TAB PO SCH (09:13)
[2017-02-19] MEDS: ALVIMOPAN 12 MG CAPSULE - Post-op dosing PO SCH ×2 (09:19→21:21)
[2017-02-19] MEDS: INSULIN NovoLIN REGULAR SUPPLEMENTAL SCALE SQ SCH ×4 (09:37→21:00)
[2017-02-19] MEDS: D5-NS + KCL 20 MEQ INJ 1,000 ML IV SCH ×2 (10:31→21:24)
[2017-02-19] MEDS: MORPHINE SULFATE 30 MG/30 ML PCA IV SCH (10:34)
[2017-02-19 12:00] VITALS: BP 127/70; PULSE 85; RESP 18; TEMP 95.9; O2SAT 95
[2017-02-19 16:00] VITALS: BP 127/70; PULSE 70; RESP 18; TEMP 98.5; O2SAT 95
[2017-02-19] MEDS ORDERED: LORazepam 2 MG/ML VIAL IV PUSH PRN (16:30)
--- NOTE | 2017-02-19 17:54 | PD.WCN.NOT ---
Wound Consult Description: Consult for NEW OSTOMY TEACHING per Dr Almonte Communicated with: MYRON Aguilera Patient Patient significant other at bedside Recommendation: Empty pouch when 1/3-1/2 full of effluent Change appliance every 3-5 days and PRN before leaks occur Additional Information: Patient seen on for ostomy assessment. Ostomy Type: Ileostomy Surgeon: Eduar Almonte MD Date of Surgery: Feb 14, 2017 Complete: Starter kit (Sent today 02/16/17 via 2 day air), Education materials ([facility] educational materials left at bedside after going over contents), Rx ( Left on chart), Other (3 supplies ordered ) Additional information Ostomy located on right side abdomen is pink, moist, moderately protruding, not functioning at this time. Appliance changed on Sunday is still intact and noted without leaks. Patient is sleeping on and off with hallucinations at this time. Per patient and patient significant other at bedside, patient has just started hallucinating. MYRON Aguilera brought to bedside for communication of hallucinations and the brent drain that was emptied by mortgage underwriter and left in bathroom for I&O's. Lis[facility] Odell [facility] Feb 19, 2017 17:54
[2017-02-19 20:00] VITALS: BP 132/71; PULSE 84; RESP 20; TEMP 97.1; O2SAT 93
[2017-02-19] MEDS: TAMSULOSIN HCL 0.4 MG CAP PO SCH (21:21)
--- NOTE | 2017-02-19 21:42 | HHI.PR ---
Subjective Remarks C/R Surg POD #5 afebrile, VSS UO good drain less little stoma output Objective - Vital Signs Date Time Temp Pulse Resp B/P (MAP) Pulse Ox O2 Delivery O2 Flow Rate FiO2 02/19/17 16:00 98.5 70 18 127/70 (89) 95 02/15/17 12:00 Nasal Cannula 2.00 Result Diagram: 02/16/1744502/16/17 0446 Objective Remarks PE alert Abd - soft, wound dry,+tympany - less, stoma bag empty A/P Assessment and Plan Imp: OOB decr IVF hold PO, adv slowly Eduar Almonte MD Feb 19, 2017 21:42
[2017-02-20] VITALS: BP 124/62; PULSE 82; RESP 20; TEMP 97.3; O2SAT 94
[2017-02-20] MEDS: METOCLOPRAMIDE HCL 10 MG/2 ML VIAL IVS SCH ×4 (00:51→17:32)
[2017-02-20] MEDS: ACETAMINOPHEN/HYDROcodone 325 MG/5 MG TAB PO PRN ×3 (03:44→21:17)
[2017-02-20] MEDS: HEPARIN SODIUM - SQ 10,000 UNITS/ML VIAL SQ SCH ×2 (03:47→17:32)
[2017-02-20 08:00] VITALS: BP 114/56; PULSE 83; RESP 17; TEMP 98.4; O2SAT 95
[2017-02-20] MEDS: INSULIN NovoLIN REGULAR SUPPLEMENTAL SCALE SQ SCH ×4 (08:00→21:00)
[2017-02-20] MEDS: LOSARTAN 25 MG TAB PO SCH (08:18)
[2017-02-20] MEDS: PANTOPRAZOLE SOD 40 MG DELAYED RELEASE TAB PO SCH (08:18)
[2017-02-20] MEDS: ALVIMOPAN 12 MG CAPSULE - Post-op dosing PO SCH ×2 (08:19→21:18)
[2017-02-20] MEDS: predniSONE 5 MG TAB PO SCH (08:19)
[2017-02-20] MEDS: PANTOPRAZOLE SODIUM 40 MG VIAL IVP SCH (08:20)
[2017-02-20] MEDS: D5-NS + KCL 20 MEQ INJ 1,000 ML IV SCH (08:29)
[2017-02-20 12:00] VITALS: BP 117/63; PULSE 78; RESP 18; TEMP 98.5; O2SAT 96
--- NOTE | 2017-02-20 14:06 | PD.WCN.NOT ---
Wound Consult Description: Consult for NEW OSTOMY TEACHING per Dr Almonte Communicated with: Patient Ale, MYRON Recommendation: Empty pouch when 1/3-1/2 full of effluent Change appliance every 3-5 days and PRN before leaks occur Additional Information: Patient seen on [address] [place] [address] for ostomy assessment and teaching. Ostomy Type: Ileostomy Surgeon: Eduar Almonte MD Date of Surgery: Feb 14, 2017 Complete: Starter kit (Sent 02/16/17 via 2 day air), Education materials ( [facility] educational materials at bedside ), Rx (Left on chart), Other (5 supplies ordered for patient to go home with ) Educated patient on: Emptying pouch Opening and closing pouch Releasing air from pouch Skin care Appliances Ambulating Diet Additional information Patient seen on [address] [place] [address] for ostomy assessment and teaching. Patient was sleeping when entering room with RUTHANN Manuel. Patient states that he walked earlier this morning. Patient also states that they changed his pouch this morning. When ileostomy was visualized on right side abdomen let it be noted that there is a urostomy pouch in place over the barrier. It was explained to the patient that the urostomy pouch would need to be changed when stoma begins to function with effluent due to the spout at the bottom of pouch that is made for liquids only. There is scant yellow liquid noted in pouch that was not emptied at this time by show card writer. Stoma is pink, moist, moderately protruding, mildly edematous, functioning with mucus only at this time. Appliance is intact on right side abdomen and noted without leaks. Patient to be seen again today before leaving premises to assess for stoma function. [facility]ell [facility] Feb 20, 2017 14:06
--- NOTE | 2017-02-20 15:05 | RADRPT ---
EXAM DATE/TIME: 02/20/2017 14:40 [place] COMPARISON: CHEST SINGLE AP, October 25, 2016, 16:26. INDICATIONS : Abdominal pain. MEDICAL HISTORY : Hypertension. SURGICAL HISTORY : CABG. Appendectomy. Colostomy. ENCOUNTER: Subsequent ACUITY: 4 - 6 days PAIN SCORE: 7/10 LOCATION: Bilateral lower quadrant FINDINGS: The examination demonstrates multiple air-filled, dilated loops of small bowel in the midabdomen. The re are a few scattered air-fluid levels in the upright portion of the exam. There is a surgical drain within the pelvis. Room air consideration would BE an adynamic ileus. Followup KUB imaging to ensure this resolves would be warranted. The visualized osseous structures are grossly intact. CONCLUSION: 1. Gaseous distention of the small bowel suggesting adynamic ileus. Followup to ensure this resolves would be warranted. Diego Sevilla MD on February 20, 2017 at 15:01 Board Certified Radiologist. This report was verified electronically.
[2017-02-20 16:00] VITALS: BP 120/70; PULSE 80; RESP 17; TEMP 96.9; O2SAT 93
[2017-02-20 20:00] VITALS: BP 138/66; PULSE 84; RESP 20; TEMP 96.8; O2SAT 94
[2017-02-20] MEDS: TAMSULOSIN HCL 0.4 MG CAP PO SCH (21:18)
[2017-02-21] VITALS: BP 125/71; PULSE 86; RESP 22; TEMP 97.5; O2SAT 93
[2017-02-21] MEDS: METOCLOPRAMIDE HCL 10 MG/2 ML VIAL IVS SCH ×4 (00:05→16:30)
[2017-02-21] MEDS: D5-NS + KCL 20 MEQ INJ 1,000 ML IV SCH ×2 (00:08→11:34)
[2017-02-21] MEDS: ACETAMINOPHEN/HYDROcodone 325 MG/5 MG TAB PO PRN ×5 (01:26→21:17)
[2017-02-21] MEDS: HEPARIN SODIUM - SQ 10,000 UNITS/ML VIAL SQ SCH ×2 (03:59→16:30)
[2017-02-21] MEDS: INSULIN NovoLIN REGULAR SUPPLEMENTAL SCALE SQ SCH ×4 (07:57→21:00)
[2017-02-21] MEDS: PANTOPRAZOLE SODIUM 40 MG VIAL IVP SCH (07:58)
[2017-02-21] MEDS: ALVIMOPAN 12 MG CAPSULE - Post-op dosing PO SCH ×2 (07:59→21:17)
[2017-02-21] MEDS: LOSARTAN 25 MG TAB PO SCH (07:59)
[2017-02-21] MEDS: PANTOPRAZOLE SOD 40 MG DELAYED RELEASE TAB PO SCH (07:59)
[2017-02-21 08:00] VITALS: BP 145/73; PULSE 86; RESP 18; TEMP 95.2; O2SAT 92
[2017-02-21] MEDS: predniSONE 5 MG TAB PO SCH (08:00)
--- NOTE | 2017-02-21 11:06 | HHI.PR ---
Subjective Remarks C/R Surg POD #7 afebrile, VSS UO good drain less better stoma output Objective - Vital Signs Date Time Temp Pulse Resp B/P (MAP) Pulse Ox O2 Delivery O2 Flow Rate FiO2 02/21/17 08:00 95.2 86 18 145/73 (97) 92 Objective Remarks PE alert Abd - soft, wound dry, less tympany A/P Assessment and Plan Imp: OOB decr IVF adv PO slowly Eduar Almonte MD Feb 21, 2017 11:06
[2017-02-21 12:00] VITALS: BP 105/59; PULSE 83; RESP 18; TEMP 95.4; O2SAT 90
--- NOTE | 2017-02-21 14:01 | PD.WCN.NOT ---
Wound Consult Description: Consult for NEW OSTOMY TEACHING per Dr Almonte Communicated with: Patient Recommendation: Empty pouch when 1/3-1/2 full of effluent Change appliance every 3-5 days and PRN before leaks occur Additional Information: Patient seen on [address] [place] [address] for ostomy assessment and teaching. Ostomy Type: Ileostomy Surgeon: Eduar Almonte MD Date of Surgery: Feb 14, 2017 Complete: Starter kit (Sent 02/16/17 via 2 day air), Education materials ( [facility] educational materials at bedside ), Rx (Left on chart), Other (5 supplies ordered for patient to go home with ) Educated patient on: Ambulating Emptying pouch Changing appliance every 3-5 days and PRN before leaks occur Staying hydrated Skin care Additional information Patient seen on [address] [place] [address] for ostomy assessment and teaching. Patient was lying in bed upon entering room earlier this morning @ approximately 10 am. Patient states that he was supposed to have an Ensure delivered on his tray this morning with breakfast and did not get it yet. Patient also states that he talked with the DR about it and has already called down to dietary to get it sent up. Patient was helped out of bed and assisted to the chair during this mornings discussion. Stoma is beginning to function per the patient and states that it was emptied twice yesterday after manual writer left and patient had finished walking the hallways. Patient then states that he needs to use the urinal and will be going home tomorrow. Plans made to visit patient tomorrow prior to discharge. Dr Almonte was in to see patient prior to this encounter. [facility]ell [facility] Feb 21, 2017 14:01
[2017-02-21 16:00] VITALS: BP 118/68; PULSE 84; RESP 18; TEMP 96.6; O2SAT 95
[2017-02-21 20:00] VITALS: BP 137/90; PULSE 82; RESP 17; TEMP 96.4; O2SAT 94
[2017-02-21] MEDS: TAMSULOSIN HCL 0.4 MG CAP PO SCH (21:17)
[2017-02-22] VITALS: BP 134/63; PULSE 82; RESP 17; TEMP 96.8; O2SAT 92
[2017-02-22] MEDS: METOCLOPRAMIDE HCL 10 MG/2 ML VIAL IVS SCH ×2 (00:04→05:48)
[2017-02-22] MEDS: ACETAMINOPHEN/HYDROcodone 325 MG/5 MG TAB PO PRN ×4 (01:20→15:09)
[2017-02-22] MEDS: D5-NS + KCL 20 MEQ INJ 1,000 ML IV SCH (01:21)
[2017-02-22] MEDS: HEPARIN SODIUM - SQ 10,000 UNITS/ML VIAL SQ SCH (04:01)
[2017-02-22] MEDS: PANTOPRAZOLE SODIUM 40 MG VIAL IVP SCH (07:18)
[2017-02-22] MEDS: predniSONE 5 MG TAB PO SCH (07:18)
[2017-02-22] MEDS: LOSARTAN 25 MG TAB PO SCH (07:18)
[2017-02-22] MEDS: PANTOPRAZOLE SOD 40 MG DELAYED RELEASE TAB PO SCH (07:18)
[2017-02-22] MEDS: INSULIN NovoLIN REGULAR SUPPLEMENTAL SCALE SQ SCH ×2 (07:21→11:32)
[2017-02-22] MEDS ORDERED: METOCLOPRAMIDE HCL 10 MG/2 ML VIAL IVS PRN (07:45)
[2017-02-22] MEDS ORDERED: HYDR-3516 PO (07:50)
--- NOTE | 2017-02-22 07:59 | HHI.PR ---
Subjective Remarks C/R Surg POD #8 afebrile, VSS UO good drain less better stoma output Objective - Vital Signs Date Time Temp Pulse Resp B/P (MAP) Pulse Ox O2 Delivery O2 Flow Rate FiO2 02/22/17 00:00 96.8 82 17 134/63 (86) 92 Objective Remarks PE alert Abd - soft, wound dry, less tympany, CAMMIE DC'd A/P Assessment and Plan Imp: OOB decr IVF adv PO slowly dc plans Eduar Almonte MD Feb 22, 2017 07:59
[2017-02-22 08:00] VITALS: BP 140/66; PULSE 90; RESP 18; TEMP 96.9; O2SAT 95
[2017-02-22 12:00] VITALS: BP 120/66; PULSE 82; RESP 19; TEMP 97.6; O2SAT 95
[2017-02-22 12:34] VITALS: RESP 17
--- NOTE | 2017-02-22 15:43 | PD.WCN.NOT ---
Wound Consult Description: Consult for NEW OSTOMY TEACHING per Dr Almonte Communicated with: Patient Recommendation: Empty pouch when 1/3-1/2 full of effluent Change appliance every 3-5 days and PRN before leaks occur Additional Information: Patient seen on [place] for ostomy teaching prior to discharge Ostomy Type: Ileostomy Surgeon: Eduar Almonte MD Date of Surgery: Feb 14, 2017 Complete: Starter kit (Sent 02/16/17 via 2 day air), Education materials ( [facility] educational materials at bedside ), Rx (Left on chart), Other (5 supplies ordered for patient to go home with ) Educated patient on: Emptying pouch every 2-3 hours Changing appliance every 3-5 days Peristomal skin care Steps on how to change appliance Drinking plenty of fluids to avoid dehydration Chewing foods well Ambulating and light exercise Additional information Patient seen on prior to discharge for further teaching and ostomy appliance visualized. Patient states that he has been emptying the pouch and cleaning it out often. Sports Equipment Repairer went over the steps to removing and replacing a new barrier and pouch using practice stoma and appliance from education kit at bedside. Patient has supplies available to go home with today and home health care. Stoma is functioning per the patient. Stoma was visualized with a clean pouch intact. Liseth Odell Feb 22, 2017 15:43
== END 2017-02-22 15:27 | disposition home health service (06) | DRG 331 ==
LOC: HSDI 02-14 10:48 → HCPC 02-14 18:09 → N07A 02-15 16:31
PROVIDERS: ADMIT Colon & Rectal Surgery; ATTEND Colon & Rectal Surgery
PROC: 07BC0ZX Excision of Pelvis Lymphatic, Open Approach, Diagnostic (ICD-10-PCS; 2017-02-14)
PROC: 0D1B0Z4 Bypass Ileum to Cutaneous, Open Approach (ICD-10-PCS; 2017-02-14)
PROC: 0WJP0ZZ Inspection of Gastrointestinal Tract, Open Approach (ICD-10-PCS; 2017-02-14)
PROC: 0WJJ0ZZ Inspection of Pelvic Cavity, Open Approach (ICD-10-PCS; 2017-02-14)
PROC: 0DJD8ZZ Inspection of Lower Intestinal Tract, Via Natural or Artificial Opening Endoscopic (ICD-10-PCS; 2017-02-14)
PROC: 0DBN0ZZ Excision of Sigmoid Colon, Open Approach (ICD-10-PCS; principal; 2017-02-14 13:34)
PROC: 0DBP0ZZ Excision of Rectum, Open Approach (ICD-10-PCS; 2017-02-14 13:34)
DX: C20 Malignant neoplasm of rectum (principal); N28.1 Cyst of kidney, acquired; I25.10 Atherosclerotic heart disease of native coronary artery without angina pectoris; Z92.3 Personal history of irradiation; Z92.21 Personal history of antineoplastic chemotherapy; Z95.1 Presence of aortocoronary bypass graft
CPT/HCPCS: 74019; 80048; 82948; 85025; 86850; 86900; 86901; 88305; 88309; 94150; C9113; J0131; J0690; J1610; J1644; J1885; J2250; J2270; J2370; J2405; J2765; J2930; J3010; J3480; J7120; J7512

== ENCOUNTER → 2017-02-07 | Outpatient (CLI) | payer MEDICARE, OTHER ==
[~2017-02-07] MED LIST changes: +1-ME1LIQ PO; +AMLO10TA2 PO; +FOLI1TAB PO; +FOLI800T PO; +LOSA25TA PO; +METF500T PO; +METH2.5T PO; +PRAV20TA2 PO; +PRED2.5T4 PO; +PRED5TAB PO; +TAMS0.4C4 PO
[2017-02-07 09:18] LABS: BASOPHIL % 0.3 % (0.0-2.0); EOSINOPHIL # 0.2 TH/MM3 (0-0.4); EOSINOPHIL % 3.6 % (0.0-4.0); HEMATOCRIT 42.3 % (39.0-51.0); HEMOGLOBIN 13.8 GM/DL (13.0-17.0); LYMPH % 20.9 % (9.0-44.0); LYMPHOCYTE # 1.3 TH/MM3 (1.0-4.8); MEAN CELL VOLUME 94.5 FL (80.0-100.0); MEAN CORPUSCULAR HEMOGLOBIN 30.9 PG (27.0-34.0); MEAN CORPUSCULAR HGB CONC 32.7 % (32.0-36.0); MEAN PLATELET VOLUME 7.6 FL (7.0-11.0); MONO % 9.5 % (0.0-8.0); MONOCYTE # 0.6 TH/MM3 (0-0.9); NEUT % 65.7 % (16.0-70.0); PLATELET COUNT 230 TH/MM3 (150-450); RED BLOOD COUNT 4.48 MIL/MM3 (4.50-5.90); RED CELL DISTRIBUTION WIDTH 15.4 % (11.6-17.2); WHITE BLOOD COUNT 6.1 TH/MM3 (4.0-11.0)
[2017-02-07 09:22] LABS: BILIRUBIN, URINE NEG (NEG); BLOOD, URINE NEG (NEG); GLUCOSE,URINE NEG (NEG); KETONE, URINE NEG (NEG); MUCUS URINE MOD /lpf (OCC); NITRITE,URINE NEG (NEG); SQUAMOUS EPITHELIAL CELL URINE <1 /hpf (0-5); URINE COLOR YELLOW (YELLW/STRAW); URINE LEUKOCYTE ESTERASE NEG (NEG)
[2017-02-07 09:29] LABS: INTERNATIONAL NORMALIZED RATIO 1.1 RATIO; PROTHROMBIN TIME - PATIENT 10.7 SEC (9.8-11.6)
[2017-02-07 09:37] LABS: ALBUMIN 3.6 GM/DL (3.4-5.0); AST (GOT) 12 U/L (15-37); BICARBONATE 25.8 MEQ/L (21.0-32.0); BLOOD UREA NITROGEN 21 MG/DL (7-18); CALCIUM 8.5 MG/DL (8.5-10.1); CHLORIDE 108 MEQ/L (98-107); CREATININE 0.92 MG/DL (0.60-1.30); GLOMERULAR FILTRATION RATE 80 ML/MIN (>89); GLUCOSE,FASTING 122 MG/DL (74-99); SODIUM (NA) 141 MEQ/L (136-145)
[2017-02-07 09:38] LABS: ALT (GPT) 21 U/L (12-78)
[2017-02-07 09:40] LABS: ALKALINE PHOSPHATASE 65 U/L (45-117); TOTAL BILIRUBIN ADULT 0.7 MG/DL (0.2-1.0); TOTAL PROTEIN 7.1 GM/DL (6.4-8.2)
--- NOTE | 2017-02-07 12:21 | EKG ---
Date Performed: 02/07/2017 Time Performed: 08:20:30 PTAGE: 76 years EKG: Sinus rhythm with PVC(s) Left axis deviation RBBB with left anterior fascicular block Abnormal ECG PREVIOUS TRACING : 10/25/2016 22.45 DOCTOR: Remigio Barajas Interpretating Date/Time 02/07/2017 12:21:27
== END ==
LOC: CPRE 07:58
PROVIDERS: ATTEND Colon & Rectal Surgery
DX: Z01.812 Encounter for preprocedural laboratory examination (principal); Z01.810 Encounter for preprocedural cardiovascular examination; C20 Malignant neoplasm of rectum; I45.10 Unspecified right bundle-branch block; Z79.01 Long term (current) use of anticoagulants
CPT/HCPCS: 36415; 80053; 81001; 85025; 85610; 85730; 93005

== ENCOUNTER 2017-05-16 10:12 | Inpatient (IN) | payer MEDICARE, OTHER ==
[~2017-05-16] VITALS: Ht 170.2 cm; Wt 86.5 kg
[2017-05-16] VITALS (8 sets, daily range): BP systolic 103–119; BP diastolic 58–63; PULSE 56–75; RESP 16; TEMP 96.8–97.8; O2SAT 92–94
[~2017-05-16 10:12] MED LIST changes: -1-ME1LIQ PO; -FOLI1TAB PO; +HYDR-3516 PO; -LISI10TA3 PO; -METF500T PO; -PRAV20TA2 PO; -PRED2.5T4 PO; -TAMS0.4C4 PO
[2017-05-16] MEDS ORDERED: ceFAZolin 1,000 MG/NS 100 ML IV SCH ×2 (10:45)
--- NOTE | 2017-05-16 10:54 | PD.HP.UP ---
H&P Update Note The Pre-Admit History and Physical Examination regarding the above named patient was reviewed (including, but not limited to, vital signs, heart, lungs, co-morbid conditions), and upon re-examination it is noted that: the patient's condition has not significantly changed since the last examination. Eduar Almonte MD May 16, 2017 10:54
[2017-05-16] MEDS ORDERED: METRONIDAZOLE 500 MG/100 ML ISONTONIC SOLN IV SCH (11:00)
[2017-05-16] MEDS ORDERED: METOPROLOL TARTRATE 25 MG TAB PO PRN (11:00)
[2017-05-16] MEDS ORDERED: SODIUM CHLORID 0.9% 500 ML IV PRN (11:00)
[2017-05-16] MEDS ORDERED: POVIDONE IODINE 5% (ANTISEPSIS KIT) 4 APPLICATIONS EACH NARE PRN (11:00)
[2017-05-16] MEDS ORDERED: LACTATED RINGER'S 1000 ML IV PRN (11:00)
[2017-05-16] MEDS ORDERED: CHLORHEXIDINE GLUCONATE 2 % 1 PACK (2 CLOTHS) TOPICAL PRN (11:00)
[2017-05-16] MEDS ORDERED: PHENYLEPH/NS 1000 MCG/10 ML SYR IV ONE (12:00)
[2017-05-16] MEDS ORDERED: PROPOFOL 200 MG/20 ML AMP IV ONE (12:00)
[2017-05-16] MEDS ORDERED: LACTATED RINGER'S 1000 ML INJ 1,000 ML IV ONE (12:00)
[2017-05-16] MEDS ORDERED: VECURONIUM BROMIDE 20 MG VIAL IV ONE (12:00)
[2017-05-16] MEDS ORDERED: NEOSTIGMINE 5 MG/5 ML SYRINGE IV PUSH ONE (12:00)
[2017-05-16] MEDS ORDERED: GLYCOPYRROLATE 1 MG/5 ML SYRINGE IV PUSH ONE (12:00)
[2017-05-16] MEDS ORDERED: LIDOCAINE HCL 1% PF 5 ML SYRINGE OTHER ONE (12:00)
[2017-05-16] MEDS ORDERED: ONDANSETRON HCL 4 MG/2 ML VIAL IV ONE (12:00)
[2017-05-16] MEDS ORDERED: STERILE WATER FOR INJECTION 20 ML VIAL IV ONE (12:00)
[2017-05-16] MEDS ORDERED: DEXAMETHASONE SOD PHOS 4 MG/ML VIAL IV ONE (12:00)
[2017-05-16] MEDS ORDERED: ACETAMINOPHEN 1000 MG/100 ML 100 ML IV ONE (12:50)
[2017-05-16] MEDS ORDERED: LIDOCAINE 0.5%/EPINEPHrine 1:200,000 SOLN 50 ML VIAL ONE (12:52)
[2017-05-16] MEDS ORDERED: BUPIVACAINE HCL PF 0.5% 30 ML VIAL ONE (12:53)
[2017-05-16] MEDS ORDERED: GLUCAGON 1 MG/ML VIAL ONE (12:53)
[2017-05-16] MEDS: D5-NS + KCL 20 MEQ INJ 1,000 ML IV SCH (14:25)
[2017-05-16] MEDS ORDERED: ENALAPRILAT 2.5 MG/2 ML VIAL IV PUSH PRN (14:30)
[2017-05-16] MEDS ORDERED: ACETAMINOPHEN 325 MG TAB PO PRN (14:30)
[2017-05-16] MEDS: PCA - TOTAL MG MORPHINE DELIVERED PER SHIFT SCH ×2 (14:30→22:00)
[2017-05-16] MEDS ORDERED: ACETAMINOPHEN/HYDROcodone 325 MG/5 MG TAB PO PRN ×2 (14:30)
[2017-05-16] MEDS ORDERED: POTASSIUM CHLOR 20 MEQ PREMIX 100 ML IV PRN (14:30)
[2017-05-16] MEDS ORDERED: ENALAPRILAT 1.25 MG/ML VIAL IV PUSH PRN (14:30)
[2017-05-16] MEDS ORDERED: KETOROLAC TROMETHAMINE 30 MG/ML (IVP) VIAL IVP PRN (14:30)
[2017-05-16] MEDS ORDERED: ONDANSETRON HCL 4 MG/2 ML VIAL IV PUSH PRN (14:30)
[2017-05-16] MEDS ORDERED: NALOXONE HCL 0.4 MG/ML AMP IV PUSH PRN (14:30)
[2017-05-16] MEDS ORDERED: POTASSIUM CHLOR 40 MEQ PREMIX 100 ML IV PRN (14:30)
[2017-05-16] MEDS ORDERED: Post-op Orders (for Pharmacy) XX ONE (14:30)
[2017-05-16] MEDS ORDERED: BENZOCAINE 6 MG/MENTHOL 10 MG LOZENGE BUCCAL PRN (14:30)
[2017-05-16] MEDS ORDERED: DO NOT ADM ANY ANTICOAGULANT DRUGS PRN (14:40)
[2017-05-16] MEDS ORDERED: *morphine SULFATE 8 MG/ML PERIprocedure ONLY ONE (14:53)
[2017-05-16] MEDS ORDERED: *morphine SULFATE 4 MG/ML PERIprocedure ONLY ONE (15:27)
[2017-05-16] MEDS: MORPHINE SULFATE 30 MG/30 ML PCA IV SCH (16:36)
[2017-05-16] MEDS: METOCLOPRAMIDE HCL 10 MG/2 ML VIAL IVS SCH (16:37)
[2017-05-16] MEDS: DEXT 5%-NACL 0.9% 1000 ML INJ 1,000 ML IV SCH ×2 (17:18→19:06)
[2017-05-16] MEDS: LOSARTAN 25 MG TAB PO SCH (17:42)
--- NOTE | 2017-05-16 23:52 | MP ---
cc: Eduar Almonte MD DATE OF OPERATION: 05/16/2017 PREOPERATIVE DIAGNOSIS: History of rectal cancer, attention to ileostomy. PROCEDURE: Exploratory laparotomy with segmental small bowel resection and closure of ileostomy. POSTOPERATIVE DIAGNOSIS: History of rectal cancer, attention to ileostomy. SURGEON: Eduar Almonte MD COMPANY DRIVER: Mook Erazo MD DESCRIPTION OF PROCEDURE: The patient was placed in the supine position. After adequate general anesthesia, his abdomen was prepped with Betadine solution and draped in the usual sterile fashion. With Dr. Erazo's assistance an elliptical incision was made around the ileostomy, dissecting the proximal and distal limbs from the subcutaneous tissues. Fascial attachments were released and the bowel mobilized up into the abdominal wound. Additional adhesions to the parietal peritoneum were taken down. Avascular plane was created proximal and distal to the ileostomy. Distally, the bowel was divided between Johnathon clamps, proximally using the GI stapling device, the intervening mesentery taken between Cleo's obtaining hemostasis with Vicryl ties. Bowel continuity was restored by firing the MARIELA stapler across the antimesenteric ends of the bowel and closing the enterotomy with a TA 60 stapler. Mesenteric defect closed with a running Vicryl suture and a 3-0 Vicryl crotch suture was placed as well. The bowel returned to the abdominal cavity. The abdominal wound was then closed reapproximating the respective fascial layers with running #1 PDS sutures. The subcutaneous tissue was irrigated copiously and the skin closed with a row of surgical mikel. Wound area washed with normal saline and dried, sterile dressing of Telfa and gauze applied. The patient tolerated the procedure quite well and was brought to the recovery room in stable condition. Eduar Almonte MD AHR/rt , 10:59 PM , 11:51 PM
[2017-05-17] VITALS (17 sets, daily range): BP systolic 108–135; BP diastolic 56–66; PULSE 50–68; RESP 16–20; TEMP 97.9–98.8; O2SAT 94–96
[2017-05-17] MEDS: METOCLOPRAMIDE HCL 10 MG/2 ML VIAL IVS SCH ×3 (00:10→20:39)
[2017-05-17] MEDS: D5-NS + KCL 20 MEQ INJ 1,000 ML IV SCH ×4 (00:10→21:29)
[2017-05-17] MEDS: metroNIDAZOLE 500 MG INJ 100 ML IV SCH ×3 (00:12→14:40)
[2017-05-17] MEDS: DEXT 5%-NACL 0.9% 1000 ML INJ 1,000 ML IV SCH ×2 (00:14→19:00)
[2017-05-17] MEDS: PCA - TOTAL MG MORPHINE DELIVERED PER SHIFT SCH ×3 (06:00→21:32)
[2017-05-17 08:15] LABS: AUTOMATED NEUTROPHIL # 7.1 TH/MM3 (1.8-7.7); BASOPHIL % 0.1 % (0.0-2.0); EOSINOPHIL % 0.1 % (0.0-4.0); HEMOGLOBIN 11.5 GM/DL (13.0-17.0); LYMPH % 10.2 % (9.0-44.0); LYMPHOCYTE # 0.9 TH/MM3 (1.0-4.8); MEAN CELL VOLUME 85.2 FL (80.0-100.0); MEAN CORPUSCULAR HEMOGLOBIN 27.1 PG (27.0-34.0); MEAN CORPUSCULAR HGB CONC 31.9 % (32.0-36.0); MONO % 6.4 % (0.0-8.0); MONOCYTE # 0.5 TH/MM3 (0-0.9); NEUT % 83.2 % (16.0-70.0); PLATELET COUNT 358 TH/MM3 (150-450); RED BLOOD COUNT 4.23 MIL/MM3 (4.50-5.90); WHITE BLOOD COUNT 8.5 TH/MM3 (4.0-11.0)
[2017-05-17 08:52] LABS: BICARBONATE 26.4 MEQ/L (21.0-32.0); CALCIUM 8.7 MG/DL (8.5-10.1); CREATININE 0.75 MG/DL (0.60-1.30)
[2017-05-17] MEDS: PANTOPRAZOLE SODIUM 40 MG VIAL IVP SCH (09:00)
[2017-05-17] MEDS: LOSARTAN 25 MG TAB PO SCH (09:29)
[2017-05-17] MEDS: PANTOPRAZOLE SOD 40 MG DELAYED RELEASE TAB PO SCH (09:29)
[2017-05-17] MEDS: predniSONE 5 MG TAB PO SCH (09:30)
--- NOTE | 2017-05-17 19:56 | HHI.PR ---
Subjective Remarks C/R surg POD #1 afebrile, VSS UO good Objective - Vital Signs Date Time Temp Pulse Resp B/P (MAP) Pulse Ox O2 Delivery O2 Flow Rate FiO2 05/17/17 17:04 68 05/17/17 16:00 98.8 18 116/56 (76) 94 05/16/17 16:30 Nasal Cannula 2 Result Diagram: 05/17/17 0713 05/17/17 0713 Objective Remarks PE alert Abd - soft, wound dry A/P Assessment and Plan Imp: stable post-op OOB start PO Eduar Almonte MD May 17, 2017 19:56
[2017-05-17] MEDS: ALVIMOPAN 12 MG CAPSULE PO SCH (20:40)
[2017-05-18] VITALS (15 sets, daily range): BP systolic 127–152; BP diastolic 62–80; PULSE 56–78; RESP 16–20; TEMP 97.1–98.1; O2SAT 93–96
[2017-05-18] MEDS: DEXT 5%-NACL 0.9% 1000 ML INJ 1,000 ML IV SCH (03:00)
[2017-05-18] MEDS: PCA - TOTAL MG MORPHINE DELIVERED PER SHIFT SCH ×2 (05:25→13:42)
[2017-05-18 05:26] LABS: AUTOMATED NEUTROPHIL # 5.8 TH/MM3 (1.8-7.7); BASOPHIL % 0.1 % (0.0-2.0); EOSINOPHIL # 0.2 TH/MM3 (0-0.4); EOSINOPHIL % 2.6 % (0.0-4.0); HEMATOCRIT 38.2 % (39.0-51.0); HEMOGLOBIN 12.3 GM/DL (13.0-17.0); LYMPH % 14.8 % (9.0-44.0); LYMPHOCYTE # 1.1 TH/MM3 (1.0-4.8); MEAN CORPUSCULAR HEMOGLOBIN 27.3 PG (27.0-34.0); MEAN CORPUSCULAR HGB CONC 32.2 % (32.0-36.0); MONO % 7.6 % (0.0-8.0); MONOCYTE # 0.6 TH/MM3 (0-0.9); NEUT % 74.9 % (16.0-70.0); PLATELET COUNT 324 TH/MM3 (150-450); RED CELL DISTRIBUTION WIDTH 17.5 % (11.6-17.2); WHITE BLOOD COUNT 7.7 TH/MM3 (4.0-11.0)
[2017-05-18 05:48] LABS: BICARBONATE 26.4 MEQ/L (21.0-32.0); CALCIUM 8.4 MG/DL (8.5-10.1); CREATININE 0.74 MG/DL (0.60-1.30)
[2017-05-18] MEDS: PANTOPRAZOLE SODIUM 40 MG VIAL IVP SCH (10:15)
[2017-05-18] MEDS: LOSARTAN 25 MG TAB PO SCH (10:18)
[2017-05-18] MEDS: METOCLOPRAMIDE HCL 10 MG/2 ML VIAL IVS SCH (10:18)
[2017-05-18] MEDS: predniSONE 5 MG TAB PO SCH (10:18)
[2017-05-18] MEDS: PANTOPRAZOLE SOD 40 MG DELAYED RELEASE TAB PO SCH (10:18)
[2017-05-18] MEDS: ALVIMOPAN 12 MG CAPSULE PO SCH (10:18)
[2017-05-18] MEDS: MORPHINE SULFATE 30 MG/30 ML PCA IV SCH (13:07)
[2017-05-18] MEDS: D5-NS + KCL 20 MEQ INJ 1,000 ML IV SCH (13:10)
--- NOTE | 2017-05-18 17:27 | HHI.PR ---
Subjective Remarks C/R surg POD #2 afebrile, VSS UO good +flatus Objective - Vital Signs Date Time Temp Pulse Resp B/P (MAP) Pulse Ox O2 Delivery O2 Flow Rate FiO2 05/18/17 14:56 98.0 68 16 138/68 (91) 96 05/16/17 16:30 Nasal Cannula 2 Result Diagram: 05/18/17 0450 05/18/17 0450 Objective Remarks PE alert Abd - soft, wound dry, small skin tear A/P Assessment and Plan Imp: OOB start PO, adv dc plans Eduar Almonte MD May 18, 2017 17:27
[2017-05-18] MEDS ORDERED: HYDR-3516 PO ×2 (17:29→17:34)
[2017-05-19] MEDS ORDERED: METHOTREXATE 2.5 MG TAB PO SCH (09:00)
== END 2017-05-18 21:40 | disposition home or self-care (01) | DRG 331 ==
LOC: HSDI 10:12 → HCPC 16:54 → UNDODISIN 05-18 12:38 → N07A 05-18 15:29
PROVIDERS: ADMIT Colon & Rectal Surgery; ATTEND Colon & Rectal Surgery
PROC: 0DBB0ZZ Excision of Ileum, Open Approach (ICD-10-PCS; principal; 2017-05-16 13:33)
DX: Z43.2 Encounter for attention to ileostomy (principal); E11.9 Type 2 diabetes mellitus without complications; M06.9 Rheumatoid arthritis, unspecified; I10 Essential (primary) hypertension; I25.10 Atherosclerotic heart disease of native coronary artery without angina pectoris; Z79.84 Long term (current) use of oral hypoglycemic drugs; Z85.048 Personal history of other malignant neoplasm of rectum, rectosigmoid junction, and anus; Z87.891 Personal history of nicotine dependence; Z95.1 Presence of aortocoronary bypass graft
CPT/HCPCS: 80048; 85025; 86850; 86900; 86901; 94150; J0131; J0690; J1100; J1610; J2270; J2370; J2405; J2710; J2765; J3010; J3480; J7042; J7120; J7512